=== PATIENT | male | born 1965 | race African-American/Black ===

== ENCOUNTER 2018-10-03 12:43 | Emergency (ER) | payer MEDICAID ==
[~2018-10-03] VITALS: Ht 185.4 cm; Wt 95.3 kg
[2018-10-03 12:51] VITALS: BP 133/95
--- NOTE | 2018-10-03 13:04 | NUR ---
Flashing light and blurry vision to L eye x 2 days. DENIES PAIN, DENIES PHOTOPHOBIA. AOX4, AMBULATORY, RR EVEN AND UNLABORED. SKIN INTACT, NO ACUTE DISTRESS NOTED. PLACED ON MONITOR. READY FOR EVAL. Addendum: 10/03/18 at 1316 by MINIUWONO SEEN BY DR VIEIRA
--- NOTE | 2018-10-03 13:12 | NUR ---
PT TAKEN TO CT VIA [facility]
[2018-10-03 13:13] LABS: BASOPHILS # (AUTO) 0.1 /CMM (0.0-0.2); BASOPHILS % (AUTO) 1.3 % (0.0-2.0); EOSINOPHILS % (AUTO) 2.3 % (0.0-6.0); HEMATOCRIT 49 % (39-51); HEMOGLOBIN 15.5 g/dL (13.5-17.5); LYMPHOCYTES # (AUTO) 2.3 /CMM (0.8-4.8); LYMPHOCYTES % (AUTO) 24.4 % (20.0-44.0); MEAN CORPUSCULAR HGB CONC 32 g/dl (31.0-36.0); MEAN CORPUSCULAR VOLUME 92 fL (80-96); MONOCYTES # (AUTO) 0.7 /CMM (0.1-1.30); NEUTROPHILS # (AUTO) 5.9 /CMM (1.8-8.9); PLATELET COUNT (AUTO) 213 /CMM (150-450); RED BLOOD CELL COUNT(AUTO) 5.27 MIL/uL (4.5-6.0); WHITE BLOOD COUNT (AUTO) 9.3 K/uL (4.3-11.0)
[2018-10-03 13:20] LABS: CALCIUM, SERUM 8.9 mg/dL (8.5-10.1); CREATININE 1.5 mg/dL (0.6-1.3)
[2018-10-03] MEDS ORDERED: AMLO2.5T2 PO (13:54)
[2018-10-03] MEDS ORDERED: ASPIRIN 325 MG TABLET PO ONE (14:00)
[2018-10-03] MEDS ORDERED: ASPIRIN 325 MG TABLET ONE (14:14)
--- NOTE | 2018-10-03 14:29 | NUR ---
IV removed. Catheter intact and site benign. Pressure and 4x4 applied to site. No bleeding noted. Patient does not wish to proceed with medical care recommended by Dr. VIEIRA. Patient given information related to possible complications, up to and including , which could occur as a result of leaving the hospital at this time. Patient verbalizes understanding of risks involved due to leaving against medical advice. Patient has signed AMA form.
[2018-10-04] MEDS ORDERED: FURO-145 PO (09:35)
[2018-10-04] MEDS ORDERED: AMLO5TAB9 PO (09:35)
[2018-10-04] MEDS ORDERED: GLIP5TAB13 PO (09:35)
== END 2018-10-03 14:20 | disposition left against medical advice (07) ==
LOC: ER 12:43
DX: I63.9 Cerebral infarction, unspecified (principal); I10 Essential (primary) hypertension; E11.9 Type 2 diabetes mellitus without complications; R00.0 Tachycardia, unspecified
CPT/HCPCS: 36415; 70450-TC; 71045-TC; 80048-TC; 82962-TC; 84484-TC; 85025-TC

== ENCOUNTER 2018-10-04 02:00 | Inpatient (IN) | payer MEDICAID ==
[~2018-10-04] VITALS: Ht 182.9 cm; Wt 116.6 kg
[~2018-10-04 02:00] MED LIST: AMLO2.5T2 PO
--- NOTE | 2018-10-04 02:06 | NUR ---
PT BIBSELF C/O "FLOATERS IN EYES" X4 DAYS. -TRAUMA, -HEADACHE, -DIZZINESS. PT AOX4. NAD NOTED. RESP EVEN AND UNLABORED. PT ON MONITOR IN BED 9. WILL CONTINUE TO MONITOR.
[2018-10-04] MEDS ORDERED: ASPIRIN 325 MG TABLET PO ONE (02:30)
--- NOTE | 2018-10-04 02:30 | NUR ---
BLOOD DRAWN AND GIVEN TO LAB
--- NOTE | 2018-10-04 02:32 | NUR ---
RADIOLOGY AT BEDSIDE FOR XRAY
[2018-10-04] MEDS ORDERED: ASPIRIN 325 MG TABLET ONE (02:34)
[2018-10-04 02:38] LABS: BASOPHILS # (AUTO) 0.1 /CMM (0.0-0.2); BASOPHILS % (AUTO) 0.8 % (0.0-2.0); EOSINOPHILS % (AUTO) 3.4 % (0.0-6.0); HEMATOCRIT 47 % (39-51); HEMOGLOBIN 15.1 g/dL (13.5-17.5); LYMPHOCYTES # (AUTO) 2.6 /CMM (0.8-4.8); LYMPHOCYTES % (AUTO) 26.2 % (20.0-44.0); MEAN CORPUSCULAR HGB CONC 33 g/dl (31.0-36.0); MEAN CORPUSCULAR VOLUME 91 fL (80-96); MONOCYTES # (AUTO) 0.9 /CMM (0.1-1.30); MONOCYTES % (AUTO) 8.9 % (2.0-12.0); NEUTROPHILS % (AUTO) 60.7 % (43.0-81.0); PLATELET COUNT (AUTO) 202 /CMM (150-450); RED BLOOD CELL COUNT(AUTO) 5.12 MIL/uL (4.5-6.0); WHITE BLOOD COUNT (AUTO) 9.9 K/uL (4.3-11.0)
[2018-10-04 02:45] LABS: CREATININE 1.5 mg/dL (0.6-1.3); POTASSIUM 4.2 mmol/L (3.5-5.1)
--- NOTE | 2018-10-04 03:41 | NUR ---
PT AMBULATED TO BATHROOM AND TOLERATED WELL.
[2018-10-04] MEDS ORDERED: ALBUTEROL FS 2.5 MG/3 ML VIAL.NEB ONE (04:16)
[2018-10-04] MEDS ORDERED: IPRATROPIUM NEB FS 0.5 MG/2.5 ML AMPUL.NEB ONE (04:16)
--- NOTE | 2018-10-04 04:24 | NUR ---
RT AT BEDSIDE FOR BREATHING TREATMENT
[2018-10-04] MEDS ORDERED: FUROSEMIDE 40 MG/4 ML VIAL IV STA (04:30)
[2018-10-04] MEDS ORDERED: ALBUTEROL FS 2.5 MG/3 ML VIAL.NEB NEB ONE (04:30)
[2018-10-04] MEDS ORDERED: IPRATROPIUM NEB FS 0.5 MG/2.5 ML AMPUL.NEB NEB ONE (04:30)
[2018-10-04] MEDS ORDERED: FUROSEMIDE 40 MG/4 ML VIAL ONE (04:34)
--- NOTE | 2018-10-04 04:46 | NUR ---
REPORT GIVEN TO EAN DREW FOR SHIRLEY
[2018-10-04] MEDS ORDERED: SIMVASTATIN 40 MG TABLET PO SCH (05:00)
--- NOTE | 2018-10-04 05:12 | NUR ---
RECORDS ADMINISTRATOR NOTES RECEIVED PATIENT FROM ED VIA GURNEY WITH NO DISTRESS NOTED. PATIENT A/OX4 AND ABLE TO VERBALIZE NEEDS. NO C/O PAIN OR DISCOMFORT. PATIENT STATED HE DOES NOT HAVE BLURRY VISION BUT INSTEAD SEES NUMBERS IN A POARCH IN HIS LEFT EYE THAT TRANSFERS TO HIS RIGHT EYE INTERMITTENTLY. PATIENT DENIES HAVING THIS VISUAL EPISODE AT THIS TIME. NO C/O GILL OR DIZZINESS. NURSING SWALLOW EVAL RENDERED AND TOLERATED WELL. PATIENT ABLE TO SWALLOW SAFELY WITH NO COMPLICATIONS NOTED. ENCOURAGED USE OF CALL LIGHT AND VERBALIZED GOOD UNDERSTANDING. BED IN LOW LOCK SETTING. ROOM FREE OF CLUTTER AND BELONGINGS KEPT NEAR BEDSIDE. WILL CONTINUE TO MONITOR.
[2018-10-04 05:30] VITALS: BP 139/97
[2018-10-04] MEDS ORDERED: BLOOD SUGAR DIAGNOSTIC 1 EACH STRIP IN SCH ×2 (06:00→07:30)
[2018-10-04 06:28] LABS: CALCIUM, SERUM 9.2 mg/dL (8.5-10.1); CREATININE 1.4 mg/dL (0.6-1.3); POTASSIUM 3.7 mmol/L (3.5-5.1)
[2018-10-04 06:30] LABS: BASOPHILS # (AUTO) 0.1 /CMM (0.0-0.2); BASOPHILS % (AUTO) 0.5 % (0.0-2.0); EOSINOPHILS % (AUTO) 2.6 % (0.0-6.0); HEMATOCRIT 45 % (39-51); HEMOGLOBIN 14.7 g/dL (13.5-17.5); LYMPHOCYTES # (AUTO) 2.9 /CMM (0.8-4.8); MEAN CORPUSCULAR HGB CONC 33 g/dl (31.0-36.0); MEAN CORPUSCULAR VOLUME 91 fL (80-96); MONOCYTES # (AUTO) 0.9 /CMM (0.1-1.30); MONOCYTES % (AUTO) 8.6 % (2.0-12.0); NEUTROPHILS # (AUTO) 6.2 /CMM (1.8-8.9); NEUTROPHILS % (AUTO) 60.3 % (43.0-81.0); PLATELET COUNT (AUTO) 216 /CMM (150-450); RED BLOOD CELL COUNT(AUTO) 4.96 MIL/uL (4.5-6.0); WHITE BLOOD COUNT (AUTO) 10.3 K/uL (4.3-11.0)
[2018-10-04 06:34] LABS: ALBUMIN 3.3 g/dL (3.4-5.0); BILIRUBIN,TOTAL 1.1 mg/dL (0.2-1.0); TOTAL PROTEIN, SERUM 7.3 g/dL (6.4-8.2)
--- NOTE | 2018-10-04 07:20 | NUR ---
RN NOTES PATIENT A/OX3, BREATHING EVEN AND UNLABORED, NO SOB NOTED, PATIENT OBSERVED AMBULATING TO THE RESTROOM INDEPENDENTLY WITH STEADY GAIT. NEEDS ATTENDED, CALL LIGHT WITHIN REACH, WILL CONTINUE TO MONITOR.
--- NOTE | 2018-10-04 07:48 | NUR ---
MARKING STITCHER NOTES PATIENT ASLEEP IN BED WITH NO DISTRESS NOTED. CALL LIGHT WITHIN REACH. NO C/O PAIN OR DISCOMFORT. PERIPHERAL LINE INTACT AND PATENT. ALL DUE MEDS GIVEN ORDERED WITH NO ASE NOTED. BED IN LOW LOCK SETTING. ROOM FREE OF CLUTTER AND BELONGINGS KEPT NEAR BEDSIDE. WILL CONTINUE TO MONITOR.
[2018-10-04 08:00] VITALS: BP 138/96
[2018-10-04] MEDS ORDERED: ENOXAPARIN SODIUM 40 MG/0.4 ML DISP.SYRIN SQ SCH (09:00)
[2018-10-04] MEDS ORDERED: ASPIRIN EC 325 MG TABLET.DR PO SCH (09:00)
[2018-10-04] MEDS ORDERED: FURO-145 PO (09:35)
[2018-10-04] MEDS ORDERED: AMLO5TAB9 PO (09:35)
[2018-10-04] MEDS ORDERED: GLIP5TAB13 PO (09:35)
--- NOTE | 2018-10-04 10:00 | NUR ---
RN NOTES STROKE PATIENT TEACHING PROVIDED TO THE PATIENT. GIVEN STROKE PAMPHLET. PATIENT VERBALIZE UNDERSTANDING.
[2018-10-04] MEDS ORDERED: DEXTROSE 50%-WATER 50 ML DISP.SYRIN IV PRN (11:00)
[2018-10-04] MEDS: BLOOD SUGAR DIAGNOSTIC 1 EACH STRIP IN SCH ×2 (11:59→17:57)
[2018-10-04 12:00] VITALS: BP 130/94
[2018-10-04] MEDS: INSULIN REGULAR, HUMAN 100 UNIT/ML 3 ML VIAL SQ PRN ×2 (12:02→17:58)
[2018-10-04 12:24] LABS: APPEARANCE,URINE CLEAR (CLEAR); BILIRUBIN,URINE NEGATIVE (NEGATIVE); BLOOD, URINE TRACE-INTA Ery/uL (NEGATIVE); COLOR,URINE YELLOW (YELLOW); KETONES,URINE NEGATIVE (NEGATIVE); LEUKOCYTE ESTERASE ,URINE NEGATIVE (NEGATIVE); NITRITE, URINE NEGATIVE (NEGATIVE); PH,URINE 6.5 (5.0-8.0); PROTEIN,URINE NEGATIVE (NEGATIVE); UGLUCOSE NEGATIVE (NEGATIVE); UROBILINOGEN,URINE 0.2 EU/dL (0.2)
[2018-10-04 12:27] LABS: BACTERIA,URINE Rare /HPF (None Seen); RBC,URINE 0-2 /HPF (0-2); SQUAMOUS EPITHELIAL CELL,UR 0-2 /HPF (None Seen); WBC,URINE 0-2 /HPF (0-3)
[2018-10-04] MEDS ORDERED: CARVEDILOL 3.125 MG TABLET PO SCH (12:30)
[2018-10-04 12:52] LABS: THYROID STIMULATING HORMONE 2.01 uIU/mL (0.358-3.74)
[2018-10-04] MEDS: FUROSEMIDE 40 MG/4 ML VIAL IV SCH ×2 (13:07→16:36)
[2018-10-04] MEDS: POTASSIUM CHLORIDE 20 MEQ TAB.PRT.SR PO SCH ×3 (13:08→16:34)
[2018-10-04 16:00] VITALS: BP 128/92
[2018-10-04 16:52] LABS: MAGNESIUM 1.6 mg/dL (1.8-2.4); PHOSPHORUS 3.9 mg/dL (2.5-4.9)
[2018-10-04] MEDS ORDERED: MAGNESIUM OXIDE 400 MG TABLET PO ONE (18:30)
--- NOTE | 2018-10-04 18:44 | NUR ---
RN NOTES PATIENT VERBALIZED WANTING TO BE DISCHARGED TO HOME, BUT PER KRISTEN PATIENT IS NOT MEDICALLY CLEARED YET, HOWEVER PATIENT STILL INSISTING ON LEAVING AND WOULD LIKE TO LEAVE AMA. DR. ZIEGLER AND KRISTEN GREGG MADE AWARE. EXPLAINED RISKS AND BENEFITS AND ALTERNATIVES. BUT PATIENT HAS DECIDED TO LEAVE AMA. DR. HARRELL PRESENT AT HIS BEDSIDE. DR. ZIEGLER CALLED FOR RECOMMENDATION OF MEDICATIONS AND DOSAGES AND TO ASK PRIMARY TO WRITE THE RX. INFORMED KRISTEN GREGG. PATIENT IN STABLE CONDITION AT THIS TIME.
--- NOTE | 2018-10-04 19:56 | NUR ---
PT LEFT THE HOSPITAL AMA,. KRISTEN GREGG WINDOWS AND DOORS INSTALLER MADE AWARE. DISCHARGE (EXIT CARE) PAPERS AND A PRESCRIPTION FROM WINDOWS AND DOORS INSTALLER WAS GIVEN TO THE PT. IV LINE WAS REMOVED WITH NO COMPLICATIONS OR BLEEDING. ALL BELONGINGS WERE PICKED UP BY THE PT AND PT WAS ACCOMPANIED TO THE LOBBY. EDUCATION RE HEALTHY DIET AND F/U WITH PRIMARY CARE PHYSICIAN WAS PROVIDED WITH UNDERSTANDING. CHARGE NURSE, CAROL QUINTANA
[2018-10-04 20:20] VITALS: BP 125/84
== END 2018-10-04 20:00 | disposition left against medical advice (07) | DRG 45 ==
LOC: ER 02:03 → TELE 03:06 → MED 09:23 → TELE 12:47
PROVIDERS: ADMIT Registered Nurse; ATTEND Registered Nurse
DX: I63.9 Cerebral infarction, unspecified (principal); I21.A1 Myocardial infarction type 2; N17.0 Acute kidney failure with tubular necrosis; E11.22 Type 2 diabetes mellitus with diabetic chronic kidney disease; E11.65 Type 2 diabetes mellitus with hyperglycemia; E86.0 Dehydration; E66.9 Obesity, unspecified; I25.2 Old myocardial infarction; Z87.891 Personal history of nicotine dependence; Z91.14 Patient's other noncompliance with medication regimen; Z68.34 Body mass index [BMI] 34.0-34.9, adult; I13.0 Hypertensive heart and chronic kidney disease with heart failure and stage 1 through stage 4 chronic kidney disease, or unspecified chronic kidney disease; N18.9 Chronic kidney disease, unspecified; Z79.84 Long term (current) use of oral hypoglycemic drugs; Z79.4 Long term (current) use of insulin; I50.23 Acute on chronic systolic (congestive) heart failure
CPT/HCPCS: 36415; 70450-TC; 71045-TC; 80048-TC; 80053-TC; 80305; 81000-TC; 82962-TC; 83735-TC; 83880; 84100-TC; 84439-TC; 84443-TC; 84484-TC; 85025-TC; 85730-TC; 87081-TC; 92521; 92611-TC; 93307-TC; 93880-TC; G0378; J1650; J1815; J1940

== ENCOUNTER 2018-12-25 03:16 | Inpatient (IN) | payer MEDICAID ==
[2018-12-25] VITALS (9 sets, daily range): BP systolic 109–130; BP diastolic 69–96
[~2018-12-25] VITALS: Ht 182.9 cm; Wt 100.7 kg
[~2018-12-25 03:16] MED LIST changes: -AMLO2.5T2 PO; +AMLO5TAB9 PO; +FURO-145 PO; +GLIP5TAB13 PO
--- NOTE | 2018-12-25 03:40 | NUR ---
TECH AT BEDSIDE FOR EKG
--- NOTE | 2018-12-25 03:43 | NUR ---
PHLEB AT BEDSIDE FOR LAB DRAW
--- NOTE | 2018-12-25 04:17 | NUR ---
RADIOLOGY AT BEDSIDE FOR XRAY
[2018-12-25 04:22] LABS: BASOPHILS # (AUTO) 0.1 /CMM (0.0-0.2); BASOPHILS % (AUTO) 1.5 % (0.0-2.0); EOSINOPHILS % (AUTO) 1.6 % (0.0-6.0); HEMATOCRIT 46 % (39-51); HEMOGLOBIN 14.6 g/dL (13.5-17.5); LYMPHOCYTES # (AUTO) 1.6 /CMM (0.8-4.8); LYMPHOCYTES % (AUTO) 22.7 % (20.0-44.0); MEAN CORPUSCULAR HGB CONC 32 g/dl (31.0-36.0); MEAN CORPUSCULAR VOLUME 87 fL (80-96); MONOCYTES # (AUTO) 0.4 /CMM (0.1-1.30); MONOCYTES % (AUTO) 6.3 % (2.0-12.0); NEUTROPHILS # (AUTO) 4.9 /CMM (1.8-8.9); NEUTROPHILS % (AUTO) 67.9 % (43.0-81.0); PLATELET COUNT (AUTO) 144 /CMM (150-450); RED BLOOD CELL COUNT(AUTO) 5.33 MIL/uL (4.5-6.0); WHITE BLOOD COUNT (AUTO) 7.1 K/uL (4.3-11.0)
[2018-12-25 04:31] LABS: CALCIUM, SERUM 8.6 mg/dL (8.5-10.1); CARBON DIOXIDE 24 mmol/L (21-32); CHLORIDE 101 mmol/L (98-107); CREATININE 1.5 mg/dL (0.6-1.3); GLUCOSE 242 mg/dL (74-106); POTASSIUM 3.9 mmol/L (3.5-5.1); SODIUM SERUM 136 mmol/L (136-145); UREA NITROGEN, BLOOD 31 mg/dL (7-18)
[2018-12-25 04:43] LABS: ALANINE AMINOTRANSFERASE 53 U/L (12-78); ALBUMIN 2.6 g/dL (3.4-5.0); ALKALINE PHOSPHATASE 242 U/L (46-116); ASPARTATE AMINOTRANSFERASE 49 U/L (15-37); B-TYPE NATRIURETIC PEPTIDE 1975 PG/ML (0-125); BILIRUBIN,DIRECT 2.2 mg/dL (0.0-0.2); BILIRUBIN,TOTAL 3.4 mg/dL (0.2-1.0); TOTAL PROTEIN, SERUM 7.8 g/dL (6.4-8.2)
--- NOTE | 2018-12-25 04:44 | NUR ---
LACTIC 2.6. AWARE.
[2018-12-25] MEDS ORDERED: FUROSEMIDE 40 MG/4 ML VIAL ONE (04:54)
--- NOTE | 2018-12-25 04:55 | NUR ---
CALLED [employer] AND HAD HOTHOUSE WORKER DR LIAO
[2018-12-25] MEDS ORDERED: FUROSEMIDE 40 MG/4 ML VIAL IV ONE (05:00)
--- NOTE | 2018-12-25 05:20 | NUR ---
CALLED [facility] FOR TELE BED
--- NOTE | 2018-12-25 05:24 | NUR ---
TELE [id number]
[2018-12-25] MEDS ORDERED: ONDANSETRON HCL/PF 4 MG/2 ML VIAL IVP PRN (05:30)
[2018-12-25] MEDS ORDERED: ZOLPIDEM TARTRATE 5 MG TABLET PO PRN (05:30)
[2018-12-25] MEDS ORDERED: MAGNESIUM HYDROXIDE 30 ML UDC PO PRN (05:30)
[2018-12-25] MEDS ORDERED: ACETAMINOPHEN 325 MG TABLET PO PRN (05:30)
[2018-12-25] MEDS ORDERED: Z GUARD REMEDY 2 OZ OINT TP PRN (05:30)
--- NOTE | 2018-12-25 05:35 | NUR ---
REPORT GIVEN TO EAN DICKSON FOR SHIRLEY
--- NOTE | 2018-12-25 06:56 | NUR ---
RN NOTES RECEIVED PATIENT FROM ED WITH ADMITTING DX OF CHF, SOB AT REST, TALKING WITH FULL SENTENCES WITH SHORTNESS OF BREATH, SPO2 AT ROOM AIR 93%, PRN O2 VIA NC, ALERT AND ORIENTED X4, DENIES PAIN AT THIS TIME, SKIN INTACT, BLE +4 PITTING EDEMA, AMBULATES USING ONE PT CANE, NOT USING O2 AT HOME, STARTED ADMISSION PROCESS
--- NOTE | 2018-12-25 07:33 | NUR ---
HEEL SCOURER OPENING NOTES RECEIVED PT RESTING IN BED, EASILY AROUSED. A/O X4. TOLERATING RA, WITH NO ACUTE RESPIRATORY DISTRESS NOTED. PT DENIES ANY PAIN OR DISCOMFORT AT THIS TIME. BLE EDEMA +4 NOTED. PT STATED HE IS STILL SLEEPY AT THE SAME TIME HUNGRY; INFORMED PT FOR MEAL TIMES. PT ALSO STATED HIS GOAL FOR TODAY IS TO GET OUT OF HERE AND GO HOME. PT ON TELEMONITORING SR WITH HR OF 89. PIV TO RIGHT EJ G20, FLUSHED WITH NS, INTACT AND OPERATIONAL. PT KEPT COMFORTABLE. PT'S BED KEPT IN LOWEST, LOCKED POSITION WITH SR X2. WILL CONTINUE PLAN OF CARE.
[2018-12-25] MEDS ORDERED: ASPI-1152 PO (07:55)
[2018-12-25] MEDS ORDERED: CARV3.122 PO (07:55)
[2018-12-25] MEDS ORDERED: POTA-88 PO (07:55)
[2018-12-25] MEDS: HEPARIN SODIUM, PORCINE 5000 UNITS/1 ML VIAL SQ SCH ×2 (09:16→20:45)
--- NOTE | 2018-12-25 10:45 | NUR ---
GOLF CLUB ASSEMBLER NOTES DR ZIEGLER/SEMICONDUCTOR EQUIPMENT TECHNICIAN SEEN AND EVALUATED PT, WITH ORDERS NOTED. PT AWARE WITH PLAN OF CARE.
[2018-12-25] MEDS: FUROSEMIDE 100 MG/10 ML VIAL IV SCH ×3 (11:46→18:18)
[2018-12-25] MEDS: ASPIRIN EC 81 MG TABLET.DR PO SCH (11:47)
[2018-12-25] MEDS: glipiZIDE 5 MG TABLET PO SCH ×2 (11:47→17:34)
[2018-12-25] MEDS: CARVEDILOL 3.125 MG TABLET PO SCH ×2 (11:47→17:34)
[2018-12-25] MEDS: POTASSIUM CHLORIDE 20 MEQ TAB.PRT.SR PO SCH ×3 (11:47→14:10)
[2018-12-25] MEDS ORDERED: DEXTROSE 50%-WATER 50 ML DISP.SYRIN IV PRN (12:00)
[2018-12-25 12:08] LABS: MAGNESIUM 1.7 mg/dL (1.8-2.4); PHOSPHORUS 4.1 mg/dL (2.5-4.9)
--- NOTE | 2018-12-25 12:15 | NUR ---
INGREDIENT SPECIALIST NOTES HOSPITALIST DIGITAL PHOTO PRINTER /AP CAME AND VISITED PT. NO ORDERS AT THIS MOMENT. DIGITAL PHOTO PRINTER INFORMED PT REGARDING PLAN OF CARE WITH CARDILOGIST DR. ZIEGLER.
[2018-12-25] MEDS: INSULIN REGULAR, HUMAN 100 UNIT/ML 3 ML VIAL SQ PRN ×3 (12:27→22:20)
[2018-12-25] MEDS: BLOOD SUGAR DIAGNOSTIC 1 EACH STRIP IN SCH ×3 (12:28→21:43)
--- NOTE | 2018-12-25 18:31 | NUR ---
HIGH PRESSURE OPERATOR CLOSING NOTES PT RESTING IN BED, AWAKE. A/O X4. AMBULATORY. ON SUPPLEMENTAL OXYGEN AT 2L, WITH NO ACUTE RESPIRATORY DISTRESS NOTED. PT DENIES ANY PAIN OR DISCOMFORT AT THIS TIME. BLE EDEMA +4 NOTED. PT ON TELEMONITORING SR WITH HR OF 94. PIV TO RIGHT EJ G20, FLUSHED WITH NS, INTACT AND OPERATIONAL. ALL NEEDS AND CARE ATTENDED. PT KEPT COMFORTABLE. PT'S BED KEPT IN LOWEST, LOCKED POSITION WITH SR X2. CALL LIGHT WITHIN REACH. WILL ENDORSE TO INCOMING NIGHT NURSE FOR SHIRLEY.
--- NOTE | 2018-12-25 19:26 | NUR ---
TELE/RN OPENING NOTES RECEIVED PATIENT IN SITTING IN CHAIR, ABLE TO AMBULATE TO BATHROOM WITH SUPERVISION, ALERT, ORIENTED X3, ABLE TO VERBALIZE NEEDS, RESPIRATIONS FAST, ENCOURAGE TO DO ELISE BREATHING AND USE OF NASSAL CANULA, NO PAIN VERBALIZED AND PARTICIPATIVE TO CARE,SKIN WARM TO TOUCH, REPORTED HAD ONE BOWEL MOVEMENT DURING THE START OF SHIFT, KEPT CALL LIGHTS WITHIN ERACH, BED LOCKED, INFORMED SAFETY MEASURES. RECEIVED ENDORSEMENT FROM AM RN FOR SHIRLEY. RN AM REPORTED MAGNESIUM WAS LOW AND COMMUNICATED TO AM MD WILL FOLLOW UP RESULT IN AM FOR ANY CHANGES.
[2018-12-25] MEDS: ALBUTEROL FS 2.5 MG/0.5 ML VIAL.NEB NEB PRN (22:54)
[2018-12-25] MEDS: IPRATROPIUM NEB FS 0.5 MG/2.5 ML AMPUL.NEB NEB PRN (22:54)
[2018-12-26] VITALS: BP 112/73
--- NOTE | 2018-12-26 02:37 | NUR ---
TELE/RN NOTES PATIENT REQUESTED FOR EXTERNAL JUGULAR VEIN BE REMOVED, INFORMED THE NECESITY OF IV AND SICUSSED WHY SITE WAS INSERTED DUE TO INABILITY TO FIND VEIN DUE TO EDEMA ON UPPER EXTREMITY, ICU NURSE CAME TO INSERT UNABLE TO DISCUSSED OPTION OF MIDLINE IN AM , PATIENT MADE AWARE, WILL FOLLOW UP IN AM.
[2018-12-26 04:00] VITALS: BP_SYST 112; BP_SYST 116; BP_SYST 119; BP_DIAS 73; BP_DIAS 80; BP_DIAS 83
[2018-12-26 06:20] LABS: BASOPHILS % (AUTO) 0.5 % (0.0-2.0); EOSINOPHILS % (AUTO) 0.8 % (0.0-6.0); HEMATOCRIT 42 % (39-51); HEMOGLOBIN 13.2 g/dL (13.5-17.5); LYMPHOCYTES # (AUTO) 1.9 /CMM (0.8-4.8); LYMPHOCYTES % (AUTO) 26.6 % (20.0-44.0); MEAN CORPUSCULAR HGB CONC 32 g/dl (31.0-36.0); MEAN CORPUSCULAR VOLUME 85 fL (80-96); MONOCYTES # (AUTO) 0.7 /CMM (0.1-1.30); MONOCYTES % (AUTO) 9.3 % (2.0-12.0); NEUTROPHILS # (AUTO) 4.4 /CMM (1.8-8.9); NEUTROPHILS % (AUTO) 62.8 % (43.0-81.0); PLATELET COUNT (AUTO) 147 /CMM (150-450); RED BLOOD CELL COUNT(AUTO) 4.88 MIL/uL (4.5-6.0)
[2018-12-26] MEDS: BLOOD SUGAR DIAGNOSTIC 1 EACH STRIP IN SCH ×4 (06:24→21:44)
[2018-12-26 06:44] LABS: ALBUMIN 2.2 g/dL (3.4-5.0); BILIRUBIN,TOTAL 3.2 mg/dL (0.2-1.0); CALCIUM, SERUM 8.6 mg/dL (8.5-10.1); CREATININE 1.5 mg/dL (0.6-1.3); MAGNESIUM 1.6 mg/dL (1.8-2.4); PHOSPHORUS 4.3 mg/dL (2.5-4.9); POTASSIUM 4.1 mmol/L (3.5-5.1); TOTAL PROTEIN, SERUM 6.6 g/dL (6.4-8.2)
--- NOTE | 2018-12-26 06:47 | NUR ---
TELE/RN CLOSING NOTES PATIENT IN BED ABLE TO SLEEP INTERMITENRLY. ALERT, ORIENTED, RESPIRATIONS EVEN AND UNLABORED, ON OXYGEN AT 2L VIA NC. SKIN WARM TO TOUCH, CRANBERRY JUICE WAS GIVEN AFTER BLOOD SUGAR CHECK AT 69, ABLE TO TOLERAT FLUIDS, MONITORED FOR ANY CHANGES, BED LOCKED, CALL LIGHTS WITHIN REACH, COMPLIAN TO MEDICATION. WILL ENDORSE TO AM RN FOR SHIRLEY. REFUSE TO HAVE EXTERNAL JUGULAR VEIN AND MAY NEED MID LINE BE PLACED, WILL ENDORSE TO AM RN FOR SHIRLEY.
--- NOTE | 2018-12-26 07:40 | NUR ---
rn initial notes received pt awake and able to verbalize needs, denies any pain at this time. noted with edema of bue and ble. call light within reach, bed alarm on.sinus rhythm on the monitor. no sob. will monitor accordingly.
[2018-12-26 08:00] VITALS: BP 114/76
[2018-12-26] MEDS: CARVEDILOL 3.125 MG TABLET PO SCH ×2 (08:37→16:39)
[2018-12-26] MEDS: ASPIRIN EC 81 MG TABLET.DR PO SCH (08:37)
[2018-12-26] MEDS: glipiZIDE 5 MG TABLET PO SCH ×2 (08:37→16:39)
[2018-12-26] MEDS: HEPARIN SODIUM, PORCINE 5000 UNITS/1 ML VIAL SQ SCH ×2 (09:19→21:43)
[2018-12-26] MEDS: METOLAZONE 2.5 MG TABLET PO SCH (09:34)
[2018-12-26] MEDS: FUROSEMIDE 100 MG/10 ML VIAL IV SCH ×3 (09:34→16:39)
[2018-12-26] MEDS: POTASSIUM CHLORIDE 20 MEQ TAB.PRT.SR PO SCH ×3 (09:35→12:03)
[2018-12-26] MEDS ORDERED: Magnesium 1GM/D5W 100ML PREMIX 100 ML IV SCH (11:02)
[2018-12-26] MEDS: INSULIN REGULAR, HUMAN 100 UNIT/ML 3 ML VIAL SQ PRN (12:16)
--- NOTE | 2018-12-26 14:12 | NUR ---
DANETTE received a call from pt's mom Paulette regarding a few concerns she had. Paulette informed SW that the pt. has been going from hospital to hospital and currently doesn't have a place to stay. Pt's mom has a contract until March for housing international students and cannot take the pt. to live with her. She is willing to pay for an independent living or facility. DANETTE gave her contact information for [facility] ; [facility] and [facility] . Pt. currently doesn't have insurance and has been referred to [facility] Insurance liaison Misty Ochoa at extension [phone]. No other social service needs are requested at this time. DANETTE is available, if needed.
[2018-12-26 15:45] VITALS: BP 134/98
--- NOTE | 2018-12-26 18:39 | NUR ---
RN CLOSING NOTES NO SIGNIFICANT CHANGES NOTED DURING THIS SHIFT. AMBULATED AND TOLERATED WELL, ACTIVE ROM DONE. ALL MEDS GIVEN. PT REMAINS ON LASIX AND WITH ADEQUATE URINE OUTPUT. MAGNESIUM IV GIVEN, POTASSIUM PO GIVEN ORDERED. PTS FAMILY HAS SPOKE WITH CASE MANAGEMENT AND TANK SYSTEMS MAINTAINER RE THEIR CONCERNS. WILL ENDORSE TO NEXT SHIFT FOR CONTINUITY OF CARE IN STABLE CONDITION.
--- NOTE | 2018-12-26 19:20 | NUR ---
MSRN RECEIVED ASLEEP, EASILY AROUSABLE, SOB ON MINIMAL EXERTION, 02 2L VIA NC MAINTAINED. PLAN OF CARE AND MEDICATION REGIMEN DISCUSSED WITH PATIENT, APPEARS TO UNDERSTAND. STRICT I/O, FLUIDS RESTRICTED. REMINDED TO USE URINAL AT ALL TIMES, URINALS WITHIN REACH. INSTRUCTED TO CALL STAFF FOR ANY ASSISTANCE OR DISCOMFORTS, INSTRUCTED TO SPACE ACTIVITIES. SAFETY PRECAUTIONS EMPHASIZED. TO CONTINUE.
[2018-12-26 20:00] VITALS: BP 132/73
--- NOTE | 2018-12-26 21:02 | NUR ---
LISETTEN SON AT BEDSIDE.
--- NOTE | 2018-12-26 22:06 | NUR ---
MSRN BS WAS 169. INSULIN COVERAGE DEFERRED FOR NOW. PATIENT STATED JUST HAD SANDWICH BROUGHT IN BY SON.. OTHER DUE MEDS ADMINISTERED. STRICT I/O
[2018-12-26] MEDS: ALBUTEROL FS 2.5 MG/0.5 ML VIAL.NEB NEB PRN (22:15)
[2018-12-26] MEDS: IPRATROPIUM NEB FS 0.5 MG/2.5 ML AMPUL.NEB NEB PRN (22:15)
--- NOTE | 2018-12-27 | NUR ---
MSRN ASLEEP, ENDORSED TO RN FOR CONTINUITY OF CARE.
--- NOTE | 2018-12-27 00:15 | NUR ---
RECEIVED REPORT PT STABLE, SLEEPING COMFORTABLY NO APPARENT DISTRESS OR DISCOMFORT AT THIS TIME.WILL CONTINUE TO MONITOR FREQUENTLY
--- NOTE | 2018-12-27 06:18 | NUR ---
RN CLOSING NOTES PT REMAINS IN BED, AWAKE ALERT ORIENTEDX4, BREATHING EVEN AND MINIMALLY LABORED ON 2L O2 NC. NO COMPLAINT OF PAIN OR DISCOMFORT AT THIS TIME. L UPPER ARM MIDLINE IN PLACE. BED IN LOWEST LOCKED POSITION, PT MADE COMFORTABLE NEEDS ATTENDED TO. CALL LIGHT WITHIN REACH AT ALL TIMES. WILL ENDORSE TO DAY NURSE FOR SHIRLEY.
[2018-12-27] MEDS: BLOOD SUGAR DIAGNOSTIC 1 EACH STRIP IN SCH ×4 (06:31→22:23)
[2018-12-27] MEDS: INSULIN REGULAR, HUMAN 100 UNIT/ML 3 ML VIAL SQ PRN ×4 (06:32→22:51)
--- NOTE | 2018-12-27 07:30 | NUR ---
RN MS NOTES PT IN BED, AWAKE, ALERT AND ORIENTED, NO COMPLAINT OF PAIN, NO COMPLAINT OF SOB, CALL LIGHT WITHIN REACH, MIDLINE AT LEFT A/C INTACT AND PATENT, KEPT COMFORTABLE, NEEDS ATTENDED.
[2018-12-27 07:36] LABS: BASOPHILS % (AUTO) 0.6 % (0.0-2.0); EOSINOPHILS % (AUTO) 2.4 % (0.0-6.0); HEMATOCRIT 40 % (39-51); HEMOGLOBIN 12.6 g/dL (13.5-17.5); LYMPHOCYTES # (AUTO) 1.7 /CMM (0.8-4.8); LYMPHOCYTES % (AUTO) 27.8 % (20.0-44.0); MEAN CORPUSCULAR HGB CONC 31 g/dl (31.0-36.0); MEAN CORPUSCULAR VOLUME 86 fL (80-96); MONOCYTES # (AUTO) 0.5 /CMM (0.1-1.30); NEUTROPHILS # (AUTO) 3.8 /CMM (1.8-8.9); NEUTROPHILS % (AUTO) 61.2 % (43.0-81.0); PLATELET COUNT (AUTO) 130 /CMM (150-450); RED BLOOD CELL COUNT(AUTO) 4.68 MIL/uL (4.5-6.0); WHITE BLOOD COUNT (AUTO) 6.3 K/uL (4.3-11.0)
[2018-12-27 07:49] LABS: ALBUMIN 2.1 g/dL (3.4-5.0); BILIRUBIN,TOTAL 3.1 mg/dL (0.2-1.0); CALCIUM, SERUM 8.3 mg/dL (8.5-10.1); CREATININE 1.4 mg/dL (0.6-1.3); MAGNESIUM 1.5 mg/dL (1.8-2.4); PHOSPHORUS 4.2 mg/dL (2.5-4.9); POTASSIUM 3.5 mmol/L (3.5-5.1); TOTAL PROTEIN, SERUM 6.2 g/dL (6.4-8.2)
[2018-12-27 08:00] VITALS: BP 116/71
[2018-12-27] MEDS: METOLAZONE 2.5 MG TABLET PO SCH (08:43)
[2018-12-27] MEDS: glipiZIDE 5 MG TABLET PO SCH ×2 (08:43→16:51)
[2018-12-27] MEDS: CARVEDILOL 3.125 MG TABLET PO SCH ×2 (08:44→16:51)
[2018-12-27] MEDS: ASPIRIN EC 81 MG TABLET.DR PO SCH (08:44)
[2018-12-27] MEDS: HEPARIN SODIUM, PORCINE 5000 UNITS/1 ML VIAL SQ SCH ×2 (08:58→22:50)
[2018-12-27] MEDS: Magnesium 1GM/D5W 100ML PREMIX 100 ML IV SCH ×2 (09:15→10:38)
[2018-12-27] MEDS: POTASSIUM CHLORIDE 20 MEQ TAB.PRT.SR PO SCH ×4 (09:15→12:53)
[2018-12-27] MEDS: FUROSEMIDE 100 MG/10 ML VIAL IV SCH ×3 (09:16→16:51)
[2018-12-27 12:00] VITALS: BP 120/79
--- NOTE | 2018-12-27 13:00 | NUR ---
RN MS NOTES PT IN BED, RESTING, NO COMPLAINT OF PAIN, NOT IN DISTRES, SEEN BY DR. ZIEGLER AND KRISTEN STRAIGHT CUTTER, PLAN OF CARE DISCUSSED WITH PT, VERBALIZED UNDERSTANDING, PT ALSO SEEN BY PHYSICAL THERAPIST, TOLERATED TREATMENT WELL, CALL LIGHT WITHIN REACH, DUE MEDS GIVEN ORDERED, KEPT WARM AND COMFORTABLE IN BED.
[2018-12-27 15:30] VITALS: BP 110/78
[2018-12-27] MEDS ORDERED: GUAIFENESIN 300 MG/15 ML UDC PO PRN (17:30)
--- NOTE | 2018-12-27 18:15 | NUR ---
RN MS NOTES PT IN BED, AWAKE, ALERT AND ORIENTED, DENIES PAIN, NOT IN DISTRESS, WITH COMPLAINT OF MUCUS AND IRRITATION IN HIS THROAT, KRISTEN WELT SLASHER INFORMED, ROBITUSSION ORDERED, PM MEDS ADMINISTERED, TOLERATING CURRENT DIET, ALL NEEDS ATTENDED.
--- NOTE | 2018-12-27 19:50 | NUR ---
MSRN FULLY AWAKE, DAUGHTER AT BEDSIDE. PROVIDED PRIVACY. NO NEEDS FOR NOW.
[2018-12-27 20:00] VITALS: BP 116/85
--- NOTE | 2018-12-27 22:30 | NUR ---
MSRN BS WAS 145, 2 UNITS REGULAR INSULIN SQ ADMINISTERED PER SLIDING SCALE. OTHER DUE MEDS GIVEN. SNACKS PROVIDED
--- NOTE | 2018-12-27 23:15 | NUR ---
MSRN ENDORSED TO RN FOR CONTNUITY OF CARE.
--- NOTE | 2018-12-27 23:26 | NUR ---
MS RN NOTES Assume care of this patient. Asleep comfortably on bed. Call light within easy reach. Will continue to monitor accordingly.
[2018-12-28] MEDS: BLOOD SUGAR DIAGNOSTIC 1 EACH STRIP IN SCH ×4 (06:30→21:43)
--- NOTE | 2018-12-28 07:21 | NUR ---
MS RN CLOSING NOTES Patient asleep, easily awaken. Appears comfortable, no s/sx of discomfort noted. Kept bed low and locked. Call light within easy reach. Endorsed to the next shift.
--- NOTE | 2018-12-28 07:45 | NUR ---
RN MS NOTES PT IN BED, AWAKE, ALERT AND ORIENTED, STATED THAT HE FEELS BETTER, NO COMPLAINT OF PAIN, NOT IN DISTRESS, CALL LIGHT WITHIN REACH, SEEN BY DR. ZIEGLER, PLAN OF CARE DISCUSSED WITH PT, VERBALIZED UNDERSTANDING.
[2018-12-28 08:00] VITALS: BP 119/88
[2018-12-28] MEDS: glipiZIDE 5 MG TABLET PO SCH ×2 (09:00→17:30)
[2018-12-28] MEDS: ASPIRIN EC 81 MG TABLET.DR PO SCH (09:00)
[2018-12-28] MEDS: METOLAZONE 2.5 MG TABLET PO SCH (09:00)
--- NOTE | 2018-12-28 09:00 | NUR ---
EAN ANDREWS NOTES INSULIN NOT ADMINISTERED, PT WITH POOR PO INTAKE. Addendum: 12/28/18 at 1610 by INEZ SCHOFIELD RN PLS DISREGARD ABOVE NOTE, WRONG PATIENT.
[2018-12-28] MEDS: CARVEDILOL 3.125 MG TABLET PO SCH ×2 (09:01→17:31)
[2018-12-28] MEDS: HEPARIN SODIUM, PORCINE 5000 UNITS/1 ML VIAL SQ SCH ×2 (09:18→20:54)
--- NOTE | 2018-12-28 13:00 | NUR ---
RN MS NOTES PT IN BED, AWAKE, ALERT AND ORIENTED, NO SOB, CALL LIGHT WITHIN REACH, NEEDS ATTENDED, SEEN BY PHYSICAL THERAPIST, TOLERATING CURRENT DIET WELL, CALL LIGHT WITHIN REACH AT ALL TIMES.
[2018-12-28] MEDS: INSULIN REGULAR, HUMAN 100 UNIT/ML 3 ML VIAL SQ PRN ×3 (13:22→21:37)
[2018-12-28 14:36] LABS: BASOPHILS % (AUTO) 0.7 % (0.0-2.0); EOSINOPHILS % (AUTO) 2.2 % (0.0-6.0); HEMATOCRIT 41 % (39-51); LYMPHOCYTES # (AUTO) 1.9 /CMM (0.8-4.8); LYMPHOCYTES % (AUTO) 30.5 % (20.0-44.0); MEAN CORPUSCULAR HGB CONC 32 g/dl (31.0-36.0); MEAN CORPUSCULAR VOLUME 86 fL (80-96); MONOCYTES # (AUTO) 0.5 /CMM (0.1-1.30); MONOCYTES % (AUTO) 8.4 % (2.0-12.0); NEUTROPHILS # (AUTO) 3.7 /CMM (1.8-8.9); NEUTROPHILS % (AUTO) 58.2 % (43.0-81.0); PLATELET COUNT (AUTO) 126 /CMM (150-450); RED BLOOD CELL COUNT(AUTO) 4.72 MIL/uL (4.5-6.0); WHITE BLOOD COUNT (AUTO) 6.3 K/uL (4.3-11.0)
[2018-12-28 15:03] LABS: ALBUMIN 2.2 g/dL (3.4-5.0); BILIRUBIN,TOTAL 3.6 mg/dL (0.2-1.0); CALCIUM, SERUM 8.5 mg/dL (8.5-10.1); CREATININE 1.6 mg/dL (0.6-1.3); MAGNESIUM 1.7 mg/dL (1.8-2.4); PHOSPHORUS 4.7 mg/dL (2.5-4.9); POTASSIUM 3.9 mmol/L (3.5-5.1); TOTAL PROTEIN, SERUM 6.7 g/dL (6.4-8.2)
[2018-12-28 16:00] VITALS: BP 121/75
[2018-12-28] MEDS ORDERED: MAGNESIUM OXIDE 400 MG TABLET PO ONE (16:30)
--- NOTE | 2018-12-28 18:25 | NUR ---
RN MS NOTES PT IN BED, AWAKE, ALERT AND ORIENTED, DENIES PAIN, NOT IN DISTRESS, WATCHING TV, PM MEDS GIVEN, TOLERATING CURRENT DIET WELL, ALL NEEDS ATTENDED.
--- NOTE | 2018-12-28 19:00 | NUR ---
MS RN OPENING NOTES Received patient awake on bed, no complaints of discomfort/pain at this time. On O2 at 2LPM via NC, saturating well. Kept bed low and locked, call light within easy reach. Will continue to monitor accordingly.
[2018-12-28 20:01] VITALS: BP 121/86
--- NOTE | 2018-12-29 06:36 | NUR ---
MS RN CLOSING NOTES Patient asleep, easily awaken. On O2 inhalation via NC @ 2LPM, no SOB/respiratory distress noted. All due meds given as ordered. All nursing needs attended, kept clean, dry and comfortable. No new complaints made, BLE still edematous +3. Kept bed low and locked, call light within easy reach. Endorsed to the next shift.
[2018-12-29] MEDS: BLOOD SUGAR DIAGNOSTIC 1 EACH STRIP IN SCH ×4 (06:53→21:44)
--- NOTE | 2018-12-29 07:30 | NUR ---
MS RN OPENING NOTES RECEIVED PT AWAKE IN BED, A/O X4. ON SUPPLEMENTARY OXYGEN AT 2LPM VIA NC, WITH NO ACUTE RESPIRATORY DISTRESS NOTED. PT DENIES PAIN OR ANY DISCOMFORT. PT ALSO DENIES [id number] AND QUESTIONS DURING ROUNDS. PT STATED HE'S STILL SLEEPY. PIV COREEN MIDLINE, FLUSHED WITH NS, INTACT AND OPERATIONAL. PT KEPT COMFORTABLE. HOB ELEVATED. PT'S BED KEPT IN LOWEST, LOCKED POSITION WITH SR X2. CALL LIGHT AND FLUID WITHIN REACH. WILL CONTINUE PLAN OF CARE.
[2018-12-29 08:00] VITALS: BP 109/84
[2018-12-29] MEDS: Magnesium 1GM/D5W 100ML PREMIX 100 ML IV SCH ×2 (08:46→09:49)
[2018-12-29] MEDS: FUROSEMIDE 100 MG/10 ML VIAL IV SCH ×3 (08:48→15:44)
[2018-12-29] MEDS: POTASSIUM CHLORIDE 20 MEQ TAB.PRT.SR PO SCH ×5 (08:48→13:00)
[2018-12-29] MEDS: METOLAZONE 2.5 MG TABLET PO SCH (08:49)
[2018-12-29] MEDS: ASPIRIN EC 81 MG TABLET.DR PO SCH (08:49)
[2018-12-29] MEDS: glipiZIDE 5 MG TABLET PO SCH ×2 (08:49→16:58)
[2018-12-29] MEDS: HEPARIN SODIUM, PORCINE 5000 UNITS/1 ML VIAL SQ SCH ×2 (08:51→21:46)
[2018-12-29] MEDS: CARVEDILOL 3.125 MG TABLET PO SCH ×2 (09:00→16:58)
--- NOTE | 2018-12-29 14:54 | NUR ---
MS RN NOTES UNABLE TO GIVE FIFTH DOSE OF KDUR 20MEQ TAB. PT STATED HE WANTS TO REST EARLIER. REPLACED LAST DOSE WITH NEW ORDER KDUR 20MEQ PO ONCE. PER PT REQUEST.
[2018-12-29] MEDS ORDERED: POTASSIUM CHLORIDE 20 MEQ TAB.PRT.SR PO ONE (15:00)
[2018-12-29 16:00] VITALS: BP 122/82
[2018-12-29] MEDS: INSULIN REGULAR, HUMAN 100 UNIT/ML 3 ML VIAL SQ PRN ×2 (17:08→21:48)
[2018-12-29 17:40] LABS: BASOPHILS % (AUTO) 0.7 % (0.0-2.0); EOSINOPHILS % (AUTO) 2.6 % (0.0-6.0); HEMATOCRIT 42 % (39-51); HEMOGLOBIN 13.4 g/dL (13.5-17.5); LYMPHOCYTES % (AUTO) 30.6 % (20.0-44.0); MEAN CORPUSCULAR HGB CONC 32 g/dl (31.0-36.0); MEAN CORPUSCULAR VOLUME 87 fL (80-96); MONOCYTES # (AUTO) 0.5 /CMM (0.1-1.30); MONOCYTES % (AUTO) 7.6 % (2.0-12.0); NEUTROPHILS # (AUTO) 3.9 /CMM (1.8-8.9); NEUTROPHILS % (AUTO) 58.5 % (43.0-81.0); PLATELET COUNT (AUTO) 125 /CMM (150-450); RED BLOOD CELL COUNT(AUTO) 4.87 MIL/uL (4.5-6.0); WHITE BLOOD COUNT (AUTO) 6.6 K/uL (4.3-11.0)
[2018-12-29 18:21] LABS: ALBUMIN 2.3 g/dL (3.4-5.0); BILIRUBIN,TOTAL 4.2 mg/dL (0.2-1.0); CALCIUM, SERUM 8.8 mg/dL (8.5-10.1); CREATININE 1.4 mg/dL (0.6-1.3); PHOSPHORUS 4.3 mg/dL (2.5-4.9); POTASSIUM 4.2 mmol/L (3.5-5.1)
--- NOTE | 2018-12-29 18:35 | NUR ---
MS RN CLOSING NOTES PT AWAKE IN BED, A/O X4. ON SUPPLEMENTARY OXYGEN AT 2LPM VIA NC , WITH NO ACUTE RESPIRATORY DISTRESS NOTED. PT DENIES PAIN OR ANY DISCOMFORT. PIV COREEN MIDLINE G18, FLUSHED WITH NS, INTACT AND OPERATIONAL. ALL NEEDS AND CARE ATTENDED. UA TO COLLECT; PT AWARE AND CONTINENT. HOSPITALIST/STRAIGHTENER/LW ORDERED HIDA SCAN, NUCLEAR MED CALLED AND MADE AWARE, AWAITING FOR CALL BACK REGARDING DATE AND TIME FOR PROCEDURE. WRITTEN CONSENT FOR HIDA SCAN OBTAINED FROM PT, SIGNED BY PT. PT KEPT COMFORTABLE. HOB ELEVATED. PT'S BED KEPT IN LOWEST, LOCKED POSITION WITH SR X2. CALL LIGHT AND FLUID WITHIN REACH. WILL ENDORSE TO SALES MGR NURSE FOR SHIRLEY.
[2018-12-29 18:52] LABS: BILIRUBIN,TOTAL 4.3 mg/dL (0.2-1.0)
--- NOTE | 2018-12-29 19:19 | NUR ---
MS RN RECEIVE PT IN BED AWAKE A/O X 3, NO S/S OF DISTRESS, SAFETY MEASURES IN PLACE. WILL CONTINUE TO MONITOR
[2018-12-29 20:00] VITALS: BP 115/66
[2018-12-30] MEDS: BLOOD SUGAR DIAGNOSTIC 1 EACH STRIP IN SCH ×4 (06:03→21:34)
[2018-12-30] MEDS: INSULIN REGULAR, HUMAN 100 UNIT/ML 3 ML VIAL SQ PRN ×3 (06:05→21:36)
--- NOTE | 2018-12-30 06:17 | NUR ---
MS RN ASLEEP AND EASILY AWAKEN, RESPIRATIONS EVEN AND UNLABORED. SLEPT WELL THROUGHOUT THE NIGHT. NO SIGNIFICANT CHANGES THROUGHOUT THE SHIFT. NO SHORTNESS OF BREATH, KEPT CLEAN AND DRY AND COMFORTABLE. NEEDS ATTENDED AND ANTICIPATED, AM CARE RENDERED, NO C/O OF PAIN. SAFETY MEASURES AT ALL TIMES.PT WANTS BLOOD DRAW LATER AM PER PT "I WANTED TO SLEEP" DESPITE EXPLAINING RISKS AND BENEFITS. WILL RE TRY AND ENDORSE TO DAY SHIFT RN
[2018-12-30 06:30] LABS: APPEARANCE,URINE CLEAR (CLEAR); BILIRUBIN,URINE NEGATIVE (NEGATIVE); BLOOD, URINE NEGATIVE Ery/uL (NEGATIVE); COLOR,URINE YELLOW (YELLOW); KETONES,URINE NEGATIVE (NEGATIVE); LEUKOCYTE ESTERASE ,URINE NEGATIVE (NEGATIVE); NITRITE, URINE NEGATIVE (NEGATIVE); PROTEIN,URINE NEGATIVE (NEGATIVE); UGLUCOSE NEGATIVE (NEGATIVE)
[2018-12-30 06:43] LABS: CREATININE, URINE 15.5 MG/DL (30.0-125.0); URINE TOTAL PROTEIN 5.8 mg/dL (0-11.9)
--- NOTE | 2018-12-30 07:20 | NUR ---
MS RN OPENING NOTES RECEIVED PT LAYING IN BED, RESTING COMFORTABLY. PT IS EASILY AROUSABLE. RESPIRATIONS ARE EVEN AND UNLABORED, NOT IN ANY ACUTE DISTRESS NOTED. PT C/O BACK PAIN 05/14. PER PT HE DOES NOT TAKE ANY PAIN MEDICATION. WILL MEDICATE ACCORDINGLY AND NOTE EFFECTIVENESS. MIDLINE TO COREEN INTACT, NO INFILTRATION NOTED. DRESSING KEPT CLEAN AND DRY. SAFETY MEASURES ARE IN PLACE. INSTRUCTED PT TO USE CALL LIGHT WHEN ASSISTANCE IS NEEDED, CALL LIGHT IS LEFT WITHIN REACH. WILL MONITOR THROUGHOUT SHIFT FOR CONTINUITY OF CARE.
--- NOTE | 2018-12-30 07:25 | NUR ---
MS RN NOTES-- PT WAS SEEN AND EXAMINED BY DR. ZIEGLER.
[2018-12-30 07:43] LABS: BACTERIA,URINE Few /HPF (None Seen); RBC,URINE 0-2 /HPF (0-2); SQUAMOUS EPITHELIAL CELL,UR Rare /HPF (None Seen); WBC,URINE 0-2 /HPF (0-3)
[2018-12-30 08:00] VITALS: BP 102/63
[2018-12-30] MEDS: FUROSEMIDE 100 MG/10 ML VIAL IV SCH ×3 (08:11→14:59)
[2018-12-30] MEDS: glipiZIDE 5 MG TABLET PO SCH ×2 (08:12→17:00)
[2018-12-30] MEDS: METOLAZONE 2.5 MG TABLET PO SCH (08:12)
[2018-12-30] MEDS: ASPIRIN EC 81 MG TABLET.DR PO SCH (08:12)
[2018-12-30] MEDS: CARVEDILOL 3.125 MG TABLET PO SCH ×2 (08:14→17:00)
[2018-12-30] MEDS: HEPARIN SODIUM, PORCINE 5000 UNITS/1 ML VIAL SQ SCH ×2 (08:20→20:31)
[2018-12-30 11:06] LABS: BASOPHILS % (AUTO) 0.6 % (0.0-2.0); EOSINOPHILS % (AUTO) 2.5 % (0.0-6.0); HEMATOCRIT 41 % (39-51); LYMPHOCYTES # (AUTO) 1.4 /CMM (0.8-4.8); LYMPHOCYTES % (AUTO) 23.5 % (20.0-44.0); MEAN CORPUSCULAR HGB CONC 32 g/dl (31.0-36.0); MEAN CORPUSCULAR VOLUME 87 fL (80-96); MONOCYTES # (AUTO) 0.5 /CMM (0.1-1.30); MONOCYTES % (AUTO) 9.4 % (2.0-12.0); NEUTROPHILS # (AUTO) 3.7 /CMM (1.8-8.9); PLATELET COUNT (AUTO) 133 /CMM (150-450); WHITE BLOOD COUNT (AUTO) 5.8 K/uL (4.3-11.0)
[2018-12-30 11:30] LABS: ALBUMIN 2.3 g/dL (3.4-5.0); BILIRUBIN,DIRECT 2.1 mg/dL (0.0-0.2); BILIRUBIN,TOTAL 3.8 mg/dL (0.2-1.0); CALCIUM, SERUM 8.6 mg/dL (8.5-10.1); CREATININE 1.6 mg/dL (0.6-1.3); MAGNESIUM 1.7 mg/dL (1.8-2.4); PHOSPHORUS 4.3 mg/dL (2.5-4.9); POTASSIUM 3.2 mmol/L (3.5-5.1)
[2018-12-30 11:32] LABS: BILIRUBIN,DIRECT 2.1 mg/dL (0.0-0.2); BILIRUBIN,TOTAL 3.8 mg/dL (0.2-1.0)
--- NOTE | 2018-12-30 11:54 | NUR ---
MS RN NOTES-- BLOOD SUGAR 275. 6 UNITS HUMILIN INSULIN COVERAGE. NO S/SX OF HYPERGLYCEMIA. WLL CONTINUE TO MONITOR.
[2018-12-30] MEDS: POTASSIUM CHLORIDE 20 MEQ TAB.PRT.SR PO SCH ×2 (13:15→14:04)
[2018-12-30] MEDS: Magnesium 1GM/D5W 100ML PREMIX 100 ML IV SCH ×2 (13:15→14:58)
--- NOTE | 2018-12-30 14:04 | NUR ---
MS RN NOTES-- PT ABLE TO MAKE NEEDS KNOWN. NEEDS MET AND RENDERED. PT DOES NOT APPEAR TO BE IN ANY APPARENT DISTRESS. WILL CONTINUE TO MONITOR.
[2018-12-30 16:00] VITALS: BP 118/88
--- NOTE | 2018-12-30 16:25 | NUR ---
MS MCKOY NOTES-- PT SIGNED CONSENT FOR HIDA SCAN.
--- NOTE | 2018-12-30 17:06 | NUR ---
MS RN NOTES-- PT P/U BY RADIOLOGY FOR HIDA SCAN. PT LEFT IN STABLE CONDITION.
--- NOTE | 2018-12-30 18:13 | NUR ---
MS RN NOTES-- PT CURRENTLY IN NUCLEAR MED. 1700 MEDS NOT GIVEN.
--- NOTE | 2018-12-30 18:42 | NUR ---
MS RN NOTES-- BLOOD SUGAR WAS NOT CHECKED. PT STILL IN NUCLEAR MED.
--- NOTE | 2018-12-30 18:50 | NUR ---
MS RN CLOSING NOTES NEEDS MET AND RENDERED. PT IS A/O X4, AFEBRILE. RESPIRATIONS ARE EVEN AND UNLABORED, NOT IN ANY ACUTE DISTRESS NOTED. PT DENIES ANY PAIN AT THIS TIME, NO C/O SOB, N/V. MIDLINE TO COREEN INTACT, NO INFILTRATION NOTED. DRESSING KEPT CLEAN AND DRY. SAFETY MEASURES ARE IN PLACE. REMINDED PT TO USE CALL LIGHT WHEN ASSISTNACE IS NEEDED. DAUGHTER AT BEDSIDE. WILL ENDORSE TO NEXT SHIFT FOR CONTINUITY OF CARE.
--- NOTE | 2018-12-30 18:50 | NUR ---
MS MCKOY NOTES-- PT CAME BACK FROM [place] IN STABLE CONDITION VIA WC.
--- NOTE | 2018-12-30 19:00 | NUR ---
MS RN OPENING NOTES Patient received sitting up in bed, family at bedside, alert, oriented x 4. Breathing even and unlabored. Not in any distress, on O2 at 2LP via nasal cannula. Patient able to make needs known. No complaints at this time. COREEN midline intact, no signs of infiltration. Safety measures in place; call light within reach. Bed in lowest, locked position. Encouraged to call for assistance. Will continue to monitor accordingly
[2018-12-30 20:00] VITALS: BP 129/81
--- NOTE | 2018-12-30 21:36 | NUR ---
RN NOTES Patient went down for HIDA scan
--- NOTE | 2018-12-30 21:36 | NUR ---
RN NOTES BSL- 217mg/dL. Insulin 4 units given per sliding scale
--- NOTE | 2018-12-30 22:08 | NUR ---
RN NOTES Patient back in room from HIDA scan
[2018-12-30 22:55] VITALS: BP 129/81
[2018-12-31] MEDS: BLOOD SUGAR DIAGNOSTIC 1 EACH STRIP IN SCH (06:30)
[2018-12-31] MEDS: INSULIN REGULAR, HUMAN 100 UNIT/ML 3 ML VIAL SQ PRN ×3 (06:32→16:46)
--- NOTE | 2018-12-31 06:55 | NUR ---
RN NOTES Patient's blood sugar 296mg/dL. Patient stated that his daughter brought him food from last night but said he just had crackers and sunflower seeds. Patient educated regarding diet
--- NOTE | 2018-12-31 07:00 | NUR ---
MS RN CLOSING NOTES Patient resting in bed, alert, oriented x 4. Breathing even and unlabored. Not in any distress. BSL checked- 296mg/dL, 6 units of insulin given per sliding scale. No complaints at this time. No acute changes overnight. Safety measures in place; call light within reach. Bed in low, locked position. Will endorse SHIRLEY to oncoming RN.
[2018-12-31 07:33] LABS: BASOPHILS % (AUTO) 0.5 % (0.0-2.0); EOSINOPHILS % (AUTO) 2.6 % (0.0-6.0); HEMATOCRIT 39 % (39-51); HEMOGLOBIN 12.4 g/dL (13.5-17.5); LYMPHOCYTES # (AUTO) 1.6 /CMM (0.8-4.8); LYMPHOCYTES % (AUTO) 24.6 % (20.0-44.0); MEAN CORPUSCULAR HGB CONC 32 g/dl (31.0-36.0); MEAN CORPUSCULAR VOLUME 88 fL (80-96); MONOCYTES # (AUTO) 0.7 /CMM (0.1-1.30); MONOCYTES % (AUTO) 10.3 % (2.0-12.0); PLATELET COUNT (AUTO) 137 /CMM (150-450); RED BLOOD CELL COUNT(AUTO) 4.47 MIL/uL (4.5-6.0); WHITE BLOOD COUNT (AUTO) 6.4 K/uL (4.3-11.0)
[2018-12-31 07:40] LABS: ALBUMIN 2.1 g/dL (3.4-5.0); BILIRUBIN,TOTAL 2.9 mg/dL (0.2-1.0); CALCIUM, SERUM 8.4 mg/dL (8.5-10.1); CREATININE 1.3 mg/dL (0.6-1.3); MAGNESIUM 1.5 mg/dL (1.8-2.4); PHOSPHORUS 3.9 mg/dL (2.5-4.9); POTASSIUM 3.2 mmol/L (3.5-5.1); TOTAL PROTEIN, SERUM 6.3 g/dL (6.4-8.2)
--- NOTE | 2018-12-31 07:48 | NUR ---
MS RN OPENING NOTES RECEIVED PT SITTING UP IN BED, RESTING COMFORTABLY. PT IS EASILY AROUSABLE. RESPIRATIONS ARE EVEN AND UNLABORED, NOT IN ANY ACUTE DISTRESS NOTED. PT DENIES ANY PAIN AT THIS TIME, NO C/O SOB, N/V. MIDLINE TO COREEN INTACT, NO INFILTRATION NOTED. DRESSING KEPT CLEAN AND DRY. SAFETY MEASURES ARE IN PLACE. INSTRUCTED PT TO USE CALL LIGHT WHEN ASSISTANCE IS NEEDED, CALL LIGHT IS LEFT WITHIN REACH. WILL MONITOR THROUGHOUT SHIFT FOR CONTINUITY OF CARE.
[2018-12-31 08:00] VITALS: BP 118/56
[2018-12-31] MEDS: ASPIRIN EC 81 MG TABLET.DR PO SCH (08:12)
[2018-12-31] MEDS: FUROSEMIDE 100 MG/10 ML VIAL IV SCH ×3 (08:12→16:13)
[2018-12-31] MEDS: CARVEDILOL 3.125 MG TABLET PO SCH ×2 (08:12→16:14)
[2018-12-31] MEDS: glipiZIDE 5 MG TABLET PO SCH ×2 (08:12→16:14)
[2018-12-31] MEDS: METOLAZONE 2.5 MG TABLET PO SCH (08:12)
[2018-12-31] MEDS: HEPARIN SODIUM, PORCINE 5000 UNITS/1 ML VIAL SQ SCH ×2 (08:14→21:08)
[2018-12-31] MEDS: HYDROCODONE/APAP 5/325MG 1 EACH TABLET PO PRN (08:17)
[2018-12-31] MEDS ORDERED: POTASSIUM CHLORIDE 20 MEQ TAB.PRT.SR PO ONE (08:30)
[2018-12-31] MEDS ORDERED: DEXTROSE 50%-WATER 50 ML DISP.SYRIN IV PRN (08:30)
[2018-12-31 08:43] LABS: BILIRUBIN,DIRECT 1.6 mg/dL (0.0-0.2); BILIRUBIN,TOTAL 2.9 mg/dL (0.2-1.0)
--- NOTE | 2018-12-31 11:06 | NUR ---
MS RN NOTES-- PT SEEN AND EXAMINED BY CHERY PETERSON W/ ORDERS FOR IBUPROFEN 200-400MG PO Q8H PRN. ORDERS READ BACK AND VERIFIED. NOTED AND CARRIED OUT.
[2018-12-31] MEDS: BLOOD SUGAR DIAGNOSTIC 1 EACH STRIP VI SCH ×3 (11:29→21:12)
[2018-12-31] MEDS ORDERED: IBUPROFEN 200 MG TABLET PO PRN (11:30)
--- NOTE | 2018-12-31 12:28 | NUR ---
MS RN NOTES-- RECEIVED ORDERS FROM CHERY PETERSON TO CANCEL MRCP.
--- NOTE | 2018-12-31 13:46 | NUR ---
MS RN NOTES-- NEW MIDLINE INSERTED BY MIDLINE NURSE JG WALLER. PT TOLERATED WELL.
--- NOTE | 2018-12-31 13:57 | NUR ---
MS RN NOTES-- CALLED PHARMACY, SPOKE W/ YUMIKO, RE: MG LEVEL OF 1.5. PER YUMIKO, THEY CANNOT KEEP REPLACING MG FOR MORE THAN 3 DAYS. NOTIFIED CHERY PETERSON W/ ORDERS FOR MAG OXIDE 400MG PO X1. ORDERS READ BACK AND VERIFIED. NOTED AND CARRIED OUT. WILL CONTINUE TO MONITOR.
[2018-12-31] MEDS ORDERED: MAGNESIUM OXIDE 400 MG TABLET PO ONE ×2 (14:00→22:00)
--- NOTE | 2018-12-31 15:33 | NUR ---
MS RN NOTES-- PT SEEN AND EXAMINED BY DR. RODRIGUEZ W/ ORDERS TO REPEAT LFT, DIRECT/INDIRECT BILIRUBIN. ORDERS READ BACK AND VERIFIED. NOTED AND CARRIED OUT.
[2018-12-31 16:10] VITALS: BP 107/72
[2018-12-31] MEDS: IBUPROFEN 400 MG TABLET PO PRN (18:23)
--- NOTE | 2018-12-31 18:28 | NUR ---
MS RN CLOSING NOTES ALL DUE NEEDS MET AND RENDERED. PT IS A/O X4, AFEBRILE. RESPIRATIONS ARE EVEN AND UNLABORED, NOT IN ANY ACUTE DISTRESS NOTED. PT DENIES ANY PAIN AT THIS TIME, NO C/O SOB, N/V. MIDLINE TO SRIDHAR INTACT, NO INFILTRATION NOTED. DRESSING KEPT CLEAN AND DRY. SAFETY MEASURES ARE IN PLACE. REMINDED PT TO USE CALL LIGHT WHEN ASSISTANCE IS NEEDED. WILL ENDORSE TO NEXT SHIFT FOR CONTINUITY OF CARE.
--- NOTE | 2018-12-31 19:00 | NUR ---
MS RN OPENING NOTES Patient received sitting up in bed, alert, oriented x 4. Breathing even and unlabored. Not in any distress. No complaints at this time. SRIDHAR midline intact, no signs of infiltration. Safety measures in place; call light within reach. Bed in lowest, locked position. Encouraged to call for assistance. Will continue to monitor accordingly
[2018-12-31 20:00] VITALS: BP 120/77
[2018-12-31] MEDS: *INSULIN REGULAR(HUMULIN R)HUM 100 UNIT/ML VIAL SQ PRN (21:21)
--- NOTE | 2018-12-31 21:25 | NUR ---
RN NOTES BSL- 167 mg/dL. 3 units insulin coverage given per sliding scale
[2019-01-01] MEDS: BLOOD SUGAR DIAGNOSTIC 1 EACH STRIP VI SCH ×4 (06:42→22:05)
[2019-01-01] MEDS: INSULIN REGULAR, HUMAN 100 UNIT/ML 3 ML VIAL SQ PRN ×4 (06:44→16:59)
--- NOTE | 2019-01-01 06:46 | NUR ---
RN NOTES BSL- 131 mg/dL. 2 units insulin coverage given per sliding scale
--- NOTE | 2019-01-01 06:51 | NUR ---
MS RN CLOSING NOTES Patient resting in bed, alert, oriented x 4. Breathing even and unlabored. Not in any distress. No complaints at this time. No acute changes overnight. Safety measures in place; call light within reach. Bed in low, locked position. Will endorse SHIRLEY to oncoming RN.
[2019-01-01 07:03] LABS: BASOPHILS % (AUTO) 0.5 % (0.0-2.0); EOSINOPHILS % (AUTO) 3.1 % (0.0-6.0); HEMATOCRIT 40 % (39-51); HEMOGLOBIN 12.4 g/dL (13.5-17.5); LYMPHOCYTES # (AUTO) 1.8 /CMM (0.8-4.8); LYMPHOCYTES % (AUTO) 23.3 % (20.0-44.0); MEAN CORPUSCULAR HGB CONC 31 g/dl (31.0-36.0); MEAN CORPUSCULAR VOLUME 88 fL (80-96); MONOCYTES # (AUTO) 0.8 /CMM (0.1-1.30); MONOCYTES % (AUTO) 10.7 % (2.0-12.0); NEUTROPHILS # (AUTO) 4.7 /CMM (1.8-8.9); NEUTROPHILS % (AUTO) 62.4 % (43.0-81.0); PLATELET COUNT (AUTO) 142 /CMM (150-450); RED BLOOD CELL COUNT(AUTO) 4.52 MIL/uL (4.5-6.0); WHITE BLOOD COUNT (AUTO) 7.6 K/uL (4.3-11.0)
[2019-01-01 07:22] LABS: BILIRUBIN,DIRECT 1.4 mg/dL (0.0-0.2); BILIRUBIN,TOTAL 2.7 mg/dL (0.2-1.0); CALCIUM, SERUM 8.4 mg/dL (8.5-10.1); CREATININE 1.4 mg/dL (0.6-1.3); MAGNESIUM 1.5 mg/dL (1.8-2.4); PHOSPHORUS 4.6 mg/dL (2.5-4.9); POTASSIUM 3.1 mmol/L (3.5-5.1); TOTAL PROTEIN, SERUM 6.2 g/dL (6.4-8.2)
--- NOTE | 2019-01-01 07:40 | NUR ---
MS RN OPENING NOTES RECEIVED PT SITTING UP IN BED, RESTING COMFORTABLY. PT IS EASILY AROUSABLE. RESPIRATIONS ARE EVEN AND UNLABORED, NOT IN ANY ACUTE DISTRESS NOTED. PT DENIES ANY PAIN AT THIS TIME, NO C/O SOB, N/V. MIDLINE TO SRIDHAR INTACT, NO INFILTRATION NOTED. DRESSING KEPT CLEAN AND DRY. SAFETY MEASURES ARE IN PLACE. INSTRUCTED PT TO USE CALL LIGHT WHEN ASSISTANCE IS NEEDED, CALL LIGHT IS LEFT WITHIN REACH. WILL MONITOR THROUGHOUT SHIFT FOR CONTINUITY OF CARE.
[2019-01-01 08:00] VITALS: BP_SYST 121; BP_DIAS 74; BP_DIAS 76
[2019-01-01] MEDS: METOLAZONE 2.5 MG TABLET PO SCH (08:34)
[2019-01-01] MEDS: glipiZIDE 5 MG TABLET PO SCH ×2 (08:34→16:48)
[2019-01-01] MEDS: POTASSIUM CHLORIDE 20 MEQ TAB.PRT.SR PO SCH ×5 (08:34→12:15)
[2019-01-01] MEDS: Magnesium 1GM/D5W 100ML PREMIX 100 ML IV SCH ×2 (08:34→09:34)
[2019-01-01] MEDS: CARVEDILOL 3.125 MG TABLET PO SCH ×2 (08:34→16:48)
[2019-01-01] MEDS: ASPIRIN EC 81 MG TABLET.DR PO SCH (08:34)
[2019-01-01] MEDS: FUROSEMIDE 100 MG/10 ML VIAL IV SCH ×3 (08:35→16:48)
[2019-01-01] MEDS: HEPARIN SODIUM, PORCINE 5000 UNITS/1 ML VIAL SQ SCH (08:50)
--- NOTE | 2019-01-01 12:10 | NUR ---
MS RN NOTES-- PT SEEN AND EXAMINED BY CHERY PETERSON W/ ORDERS FOR VENOUS DUPLEX TO BLE TO R/O DVT.
[2019-01-01 16:00] VITALS: BP 126/76
--- NOTE | 2019-01-01 17:30 | NUR ---
MS MCKOY NOTES-- RELAYED DUPLEX RESULTS TO CHERY PETERSON W/ NO NEW ORDERS.
--- NOTE | 2019-01-01 19:40 | NUR ---
RN OPENING NOTES RECEIVED PATIENT AWAKE, RESTING IN BED COMFORTABLY. PATIENT IS A/O X 4. RESPIRATIONS EVEN AND UNLABORED. NO RESPIRATORY DISTRESS. DENIES SOB. PATIENT DENIES PAIN AT THIS TIME. IV SITE: [facility] MIDLINE INTACT AND PATENT. SAFETY PRECAUTIONS IMPLEMENTED; CALL LIGHT WITHIN REACH, BED LOW, BED LOCKED, SIDE RAILS UP X2. ENCOURAGED TO CALL FOR ASSISTANCE. WILL CONTINUE TO MONITOR PATIENT.
[2019-01-01 20:00] VITALS: BP 111/80
[2019-01-01] MEDS: *INSULIN REGULAR(HUMULIN R)HUM 100 UNIT/ML VIAL SQ PRN (22:08)
--- NOTE | 2019-01-01 22:10 | NUR ---
RN NOTES REGULAR INSULIN 4 UNITS GIVEN. ADMINISTERED ON LEFT DELTOID. SNACKS OFFERED.
[2019-01-01] MEDS: IBUPROFEN 400 MG TABLET PO PRN (22:49)
[2019-01-02] MEDS: INSULIN REGULAR, HUMAN 100 UNIT/ML 3 ML VIAL SQ PRN ×3 (06:42→18:10)
[2019-01-02 06:49] LABS: BASOPHILS # (AUTO) 0.1 /CMM (0.0-0.2); BASOPHILS % (AUTO) 0.8 % (0.0-2.0); EOSINOPHILS % (AUTO) 3.4 % (0.0-6.0); HEMATOCRIT 41 % (39-51); LYMPHOCYTES # (AUTO) 1.9 /CMM (0.8-4.8); LYMPHOCYTES % (AUTO) 25.9 % (20.0-44.0); MEAN CORPUSCULAR HGB CONC 32 g/dl (31.0-36.0); MEAN CORPUSCULAR VOLUME 88 fL (80-96); MONOCYTES # (AUTO) 0.9 /CMM (0.1-1.30); MONOCYTES % (AUTO) 11.3 % (2.0-12.0); NEUTROPHILS # (AUTO) 4.4 /CMM (1.8-8.9); NEUTROPHILS % (AUTO) 58.6 % (43.0-81.0); PLATELET COUNT (AUTO) 140 /CMM (150-450); RED BLOOD CELL COUNT(AUTO) 4.68 MIL/uL (4.5-6.0); WHITE BLOOD COUNT (AUTO) 7.5 K/uL (4.3-11.0)
[2019-01-02] MEDS: BLOOD SUGAR DIAGNOSTIC 1 EACH STRIP VI SCH ×4 (06:49→23:16)
[2019-01-02 06:52] LABS: ALBUMIN 2.1 g/dL (3.4-5.0); BILIRUBIN,TOTAL 2.5 mg/dL (0.2-1.0); CALCIUM, SERUM 8.4 mg/dL (8.5-10.1); CREATININE 1.5 mg/dL (0.6-1.3); MAGNESIUM 1.7 mg/dL (1.8-2.4); PHOSPHORUS 4.8 mg/dL (2.5-4.9); POTASSIUM 3.3 mmol/L (3.5-5.1); TOTAL PROTEIN, SERUM 6.6 g/dL (6.4-8.2)
--- NOTE | 2019-01-02 07:03 | NUR ---
RN CLOSING NOTES PATIENT RESTING IN BED, ALERT AND ORIENTED X4. NO SIGNS OF RESPIRATORY DISTRESS. DENIES SOB. NO ACUTE CHANGES OVERNIGHT. SAFETY PRECAUTIONS IMPLEMENTED; CALL LIGHT WITHIN REACH, BED IN LOWEST POSITION, LOCKED POSITION, SIDE RAILS UP X2. ENCOURAGED TO CALL FOR ASSISTANCE. ENDORSED CARE TO EAN NIETO.
--- NOTE | 2019-01-02 07:35 | NUR ---
MS RN OPENING NOTES PATIENT IN BED RESTING, AWAKE, ALERT AND ORIENTEDX4. PATIENT IN NO ACUTE DISTRESS. NO SOB NOTED. PATIENT BREATHING ON ROOM AIR SATURATING > 95% 02. PATIENT BREATHING IS EVEN AND UNLABORED. PATIENT WITH URINAL AT THE BEDSIDE. NO PAIN OR DISCOMFORT AT THIS TIME. PATIENT BED IS LOCKED AND IN LOWEST POSITION. CALL LIGHT WITHIN REACH. WILL CONTINUE TO MONITOR.
[2019-01-02 08:00] VITALS: BP 114/85
[2019-01-02] MEDS ORDERED: acetaZOLAMIDE SODIUM 500 MG/VIAL VIAL IV ONE (08:30)
[2019-01-02] MEDS: CARVEDILOL 3.125 MG TABLET PO SCH ×2 (09:00→17:00)
[2019-01-02] MEDS: POTASSIUM CHLORIDE 20 MEQ TAB.PRT.SR PO SCH ×3 (10:16→14:35)
[2019-01-02] MEDS: IBUPROFEN 400 MG TABLET PO PRN (10:17)
[2019-01-02] MEDS: ASPIRIN EC 81 MG TABLET.DR PO SCH (10:17)
[2019-01-02] MEDS: glipiZIDE 5 MG TABLET PO SCH ×2 (10:17→18:02)
[2019-01-02] MEDS ORDERED: Magnesium 1GM/D5W 100ML PREMIX 100 ML IV SCH (11:18)
--- NOTE | 2019-01-02 14:25 | NUR ---
manager wealth management Marine met with DANETTE informing her that pt. is stating that his mother did not speak with SW and get referrals to independent living facilities. DANETTE informed Marine that she spoke with pt's mother Paulette on 12/26/18 and gave her contact information for independent living facilities. DANETTE met with pt. bedside and informed him that SW had spoken to his mother on 12/26 and provided her with information for independent living facilities. Pt. stated, " my mother has spoken to several people, I am not sure." DANETTE left contact information for [facility] and [facility] for the pt. to give to his mother Paulette.
[2019-01-02 16:00] VITALS: BP 128/82
--- NOTE | 2019-01-02 19:34 | NUR ---
MS RN CLOSING NOTE PATIENT IN BED RESTING COMFORTABLY.PATIENT BREATHING ON ROOM AIR >95% O2. PATIENT BREATHING IS EVEN AND UNLABORED. PATIENT IN NO ACUTE DISTRESS. NO SOB NOTED. PATIENTS FAMILY AT THE BEDSIDE. ALL NURSING NEEDS MET. PATIENT KEPT CLEAN AND DRY. PATIENT IV INTACT. SAFETY PRECAUTIONS IN PLACE. PATIENT BED IS LOCKED AND IN LOWEST POSITION. PATIENT CALL LIGHT WITHIN REACH. ENDORSED CARE TO PM SHIFT FOR SHIRLEY.
--- NOTE | 2019-01-02 19:45 | NUR ---
RN OPENING NOTES RECEIVED REPORT FROM DAYSHIFT RNEMILIA. FOUND Pt AWAKE, RESTING IN BED, FAMILY VISITING AT BEDSIDE. NO S/S OF ACUTE DISTRESS OR SOB NOTED. RESPIRATIONS EVEN AND UNLABORED AT THIS TIME. NO C/O PAIN AT THIS TIME. Pt IS A/OX4, VERBAL, ABLE TO MAKE NEEDS KNOWN. IV ACCESS ON SRIDHAR MIDLINE, #18G, SL. SAFETY MEASURES IN PLACE. BED LOW, LOCKED, HOB ELEVATED, SIDE RAILS UP, CALL LIGHT AND BEDSIDE TABLE WITHIN REACH. WILL CONTINUE TO MONITOR Pt's CONDITION AND SAFETY THROUGHOUT THE NIGHT. POSSIBLE DC IN THE AM.
[2019-01-02 20:00] VITALS: BP 115/77
--- NOTE | 2019-01-02 23:00 | NUR ---
RN NOTES: BG 199. ADMINISTERED 3UN OF INSULIN PER SLIDING SCALE.
[2019-01-02] MEDS: *INSULIN REGULAR(HUMULIN R)HUM 100 UNIT/ML VIAL SQ PRN (23:25)
--- NOTE | 2019-01-03 07:00 | NUR ---
RN CLOSING NOTES NO SIGNIFICANT CHANGES IN Pt's CONDITION. Pt REMAINS STABLE AT THIS TIME. NO S/S OF ACUTE DISTRESS OR SOB NOTED DURING THE NIGHT. ALL NEEDS MET AND ATTENDED TO. SAFETY MEASURES IN PLACE. WILL ENDORSE TO DAYSHIFT RN FOR Pt's SHIRLEY.
--- NOTE | 2019-01-03 07:05 | NUR ---
RN NOTES BG 152. ADMINISTERED 2UN OF INSULIN PER SLIDING SCALE.
[2019-01-03] MEDS: BLOOD SUGAR DIAGNOSTIC 1 EACH STRIP VI SCH ×4 (07:10→22:35)
[2019-01-03] MEDS: INSULIN REGULAR, HUMAN 100 UNIT/ML 3 ML VIAL SQ PRN ×2 (07:15→17:16)
--- NOTE | 2019-01-03 07:39 | NUR ---
MS RN OPENING NOTES RECEIVED PT AWAKE, IN BED, A/O X4. TOLERATING RA WITH NO ACUTE RESPIRATORY DISTRESS. PT STATED PAIN BOTH FEET, ADDED THEY GAVE HIM IBUPROFEN AND IT WAS EFFECTIVE. PT REQUESTING FOR NORCO INCLUDED IN HIS MORNING MEDICINES. PAIN DESCRIBED TINGLING SENSATION AND LIKE PINS ON HIS FEET. PT HAS NO OTHER CONCERNS AT THIS MOMENT. PIV TO SRIDHAR MIDLINE G18 SL, FLUSHED WITH NS, INTACT AND OPERATIONAL. PT KEPT COMFORTABLE. PT'S BED IN LOWEST LOCKED POSITION WITH SR X2. CALL LIGHT AND FLUIDS KEPT WITHIN REACH. WILL CONTINUE PLAN OF CARE.
[2019-01-03 08:00] VITALS: BP 111/80
[2019-01-03] MEDS: ASPIRIN EC 81 MG TABLET.DR PO SCH (08:24)
[2019-01-03] MEDS: glipiZIDE 5 MG TABLET PO SCH ×2 (08:24→16:55)
[2019-01-03] MEDS: HYDROCODONE/APAP 5/325MG 1 EACH TABLET PO PRN ×2 (08:24→17:19)
[2019-01-03] MEDS: CARVEDILOL 3.125 MG TABLET PO SCH ×2 (08:27→16:56)
--- NOTE | 2019-01-03 08:30 | NUR ---
MS RN NOTES SEEN AND EVALUATED BY DR ZIEGLER. /DR ZIEGLER AWARE OF TINGLING SENSATIONS ON THE FEET. EXPLAINED TO PT REASONS WHY. PT WILL BE BACK TO [facility] PER . TO PUT ORDERS. WILL CONTINUE TO MONITOR.
[2019-01-03] MEDS: FUROSEMIDE 40 MG TABLET PO SCH (08:36)
[2019-01-03] MEDS: POTASSIUM CHLORIDE 20 MEQ TAB.PRT.SR PO SCH (08:36)
[2019-01-03] MEDS: LOSARTAN POTASSIUM 50 MG TABLET PO SCH (08:36)
[2019-01-03] MEDS ORDERED: LOSA50TA3 PO (09:26)
[2019-01-03] MEDS ORDERED: POTA20TA83 PO (09:26)
[2019-01-03] MEDS ORDERED: FURO40TA5 PO (09:26)
[2019-01-03] MEDS ORDERED: CARV3.122 PO (09:26)
--- NOTE | 2019-01-03 09:44 | NUR ---
SW received a call from pt's mother requesting a call back regarding placement. SW contacted pt's mother and informed her that she had spoken with her on 12/26 and given her the contacts to independent living facilities. Pt's mother stated, she can't seem to remember. DANETTE again gave her the contact number to [facility] and [facility] placement at .
[2019-01-03 10:00] LABS: BASOPHILS # (AUTO) 0.1 /CMM (0.0-0.2); BASOPHILS % (AUTO) 0.7 % (0.0-2.0); EOSINOPHILS % (AUTO) 3.4 % (0.0-6.0); HEMATOCRIT 42 % (39-51); HEMOGLOBIN 13.4 g/dL (13.5-17.5); LYMPHOCYTES % (AUTO) 27.5 % (20.0-44.0); MEAN CORPUSCULAR HGB CONC 32 g/dl (31.0-36.0); MEAN CORPUSCULAR VOLUME 90 fL (80-96); MONOCYTES # (AUTO) 0.7 /CMM (0.1-1.30); NEUTROPHILS # (AUTO) 4.2 /CMM (1.8-8.9); NEUTROPHILS % (AUTO) 58.4 % (43.0-81.0); PLATELET COUNT (AUTO) 151 /CMM (150-450); RED BLOOD CELL COUNT(AUTO) 4.71 MIL/uL (4.5-6.0); WHITE BLOOD COUNT (AUTO) 7.2 K/uL (4.3-11.0)
[2019-01-03 10:11] LABS: ALBUMIN 2.3 g/dL (3.4-5.0); BILIRUBIN,TOTAL 2.3 mg/dL (0.2-1.0); CALCIUM, SERUM 8.4 mg/dL (8.5-10.1); CREATININE 1.4 mg/dL (0.6-1.3); MAGNESIUM 1.8 mg/dL (1.8-2.4); PHOSPHORUS 4.1 mg/dL (2.5-4.9); POTASSIUM 3.7 mmol/L (3.5-5.1); TOTAL PROTEIN, SERUM 7.1 g/dL (6.4-8.2)
[2019-01-03] MEDS: DOCUSATE SODIUM 100 MG CAPSULE PO SCH ×2 (11:58→16:55)
[2019-01-03] MEDS: *INSULIN REGULAR(HUMULIN R)HUM 100 UNIT/ML VIAL SQ PRN ×2 (12:11→22:56)
[2019-01-03 16:00] VITALS: BP 124/73
--- NOTE | 2019-01-03 18:47 | NUR ---
MS OLIVE PICKER NOTES PT AWAKE, IN BED, A/O X4. TOLERATING RA WITH NO ACUTE RESPIRATORY DISTRESS. PT DENIES ANY PAIN OR DISCOMFORT AT THIS TIME. PIV TO SRIDHAR MIDLINE G18 SL, FLUSHED WITH NS, INTACT AND OPERATIONAL. ALL NEEDS AND CARE PROVIDED AND ATTENDED. PT KEPT COMFORTABLE. PT'S BED IN LOWEST LOCKED POSITION WITH SR X2. CALL LIGHT AND FLUIDS KEPT WITHIN REACH. WILL ENDORSE TO INCOMING NURSE FOR SHIRLEY. Addendum: 01/03/19 at 1852 by LINO MCCABE RN WRONG DOCUMENTATION
--- NOTE | 2019-01-03 18:52 | NUR ---
MS RN CLOSING NOTES PT AWAKE, IN BED, A/O X4. TOLERATING RA WITH NO ACUTE RESPIRATORY DISTRESS. PT DENIES ANY PAIN OR DISCOMFORT AT THIS TIME. PIV TO SRIDHAR MIDLINE G18 SL, FLUSHED WITH NS, INTACT AND OPERATIONAL. ALL NEEDS AND CARE PROVIDED AND ATTENDED. PT KEPT COMFORTABLE. PT'S BED IN LOWEST LOCKED POSITION WITH SR X2. CALL LIGHT AND FLUIDS KEPT WITHIN REACH. WILL ENDORSE TO INCOMING NURSE FOR SHIRLEY.
--- NOTE | 2019-01-03 19:40 | NUR ---
RN OPENING NOTES RECEIVED REPORT FROM AMELIA RNIZA. FOUND Pt AWAKE, RESTING IN BED. NO S/S OF ACUTE DISTRESS OR SOB NOTED. RESPIRATIONS EVEN AND UNLABORED AT THIS TIME. NO C/O SEVERE PAIN AT THIS TIME. Pt IS A/OX4, VERBAL, ABLE TO MAKE NEEDS KNOWN. IV ACCESS ON SRIDHAR MIDLINE, #18G, SL. SAFETY MEASURES IN PLACE. BED LOW, LOCKED, HOB ELEVATED, SIDE RAILS UP, CALL LIGHT AND BEDSIDE TABLE WITHIN REACH. WILL CONTINUE TO MONITOR Pt's CONDITION AND SAFETY THROUGHOUT THE NIGHT.
[2019-01-03 20:00] VITALS: BP 100/68
--- NOTE | 2019-01-03 23:00 | NUR ---
RN NOTES HS ACCUCHECK BG 186. ADMINISTERED 3UN OF INSULIN PER SLIDING SCALE.
--- NOTE | 2019-01-04 05:29 | NUR ---
RN NOTES Pt REFUSED AM LAB DRAW AT THIS TIME. REQUESTED FOR THEM TO COME BACK AFTER BREAKFAST.
[2019-01-04] MEDS: BLOOD SUGAR DIAGNOSTIC 1 EACH STRIP VI SCH ×3 (06:35→17:09)
--- NOTE | 2019-01-04 06:35 | NUR ---
RN NOTES AC ACCUCHECK BG 176. ADMINISTERED 3UN OF INSULIN PER SLIDING SCALE.
[2019-01-04] MEDS: INSULIN REGULAR, HUMAN 100 UNIT/ML 3 ML VIAL SQ PRN ×3 (06:42→17:11)
[2019-01-04 07:36] LABS: BASOPHILS # (AUTO) 0.1 /CMM (0.0-0.2); BASOPHILS % (AUTO) 0.8 % (0.0-2.0); EOSINOPHILS % (AUTO) 3.7 % (0.0-6.0); HEMATOCRIT 42 % (39-51); HEMOGLOBIN 13.2 g/dL (13.5-17.5); LYMPHOCYTES # (AUTO) 2.1 /CMM (0.8-4.8); LYMPHOCYTES % (AUTO) 30.4 % (20.0-44.0); MEAN CORPUSCULAR HGB CONC 32 g/dl (31.0-36.0); MEAN CORPUSCULAR VOLUME 89 fL (80-96); MONOCYTES # (AUTO) 0.8 /CMM (0.1-1.30); MONOCYTES % (AUTO) 12.4 % (2.0-12.0); NEUTROPHILS # (AUTO) 3.6 /CMM (1.8-8.9); NEUTROPHILS % (AUTO) 52.7 % (43.0-81.0); PLATELET COUNT (AUTO) 156 /CMM (150-450); WHITE BLOOD COUNT (AUTO) 6.8 K/uL (4.3-11.0)
--- NOTE | 2019-01-04 07:52 | NUR ---
RN OPENING NOTES RECEIVED PATIENT AWAKE IN BED IN NO ACUTE SIGNS OF DISTRESS. A/O X 4. ABLE TO MAKE NEEDS KNOWN. DENIES ANY PAIN OR DISCOMFORT AT THIS TIME. ON RA WITH SPO2 OF 96%. BREATHING EVEN AND UNLABORED. WITH SRIDHAR MIDLINE #18, SL. SAFETY MEASURES IN PLACE. BED LOW, LOCKED, HOB ELEVATED, SIDE RAILS UP, CALL LIGHT AND BEDSIDE TABLE WITHIN REACH. WILL CONTINUE TO MONITOR.
[2019-01-04 08:00] VITALS: BP 99/68
[2019-01-04 08:01] LABS: ALBUMIN 2.3 g/dL (3.4-5.0); BILIRUBIN,TOTAL 1.9 mg/dL (0.2-1.0); CALCIUM, SERUM 8.4 mg/dL (8.5-10.1); CREATININE 1.5 mg/dL (0.6-1.3); MAGNESIUM 1.7 mg/dL (1.8-2.4); PHOSPHORUS 4.3 mg/dL (2.5-4.9); TOTAL PROTEIN, SERUM 6.8 g/dL (6.4-8.2)
[2019-01-04] MEDS: DOCUSATE SODIUM 100 MG CAPSULE PO SCH ×2 (08:29→16:59)
[2019-01-04] MEDS: POTASSIUM CHLORIDE 20 MEQ TAB.PRT.SR PO SCH (08:29)
[2019-01-04] MEDS: ASPIRIN EC 81 MG TABLET.DR PO SCH (08:29)
[2019-01-04] MEDS: glipiZIDE 5 MG TABLET PO SCH ×2 (08:29→16:59)
[2019-01-04] MEDS: HYDROCODONE/APAP 5/325MG 1 EACH TABLET PO PRN (08:42)
[2019-01-04] MEDS: CARVEDILOL 3.125 MG TABLET PO SCH ×2 (08:59→17:00)
[2019-01-04] MEDS: LOSARTAN POTASSIUM 50 MG TABLET PO SCH (09:00)
[2019-01-04] MEDS: FUROSEMIDE 40 MG TABLET PO SCH (09:00)
[2019-01-04] MEDS ORDERED: IBUPROFEN 200 MG TABLET PO ONE (10:00)
--- NOTE | 2019-01-04 10:05 | NUR ---
DANETTE received a voicemail message from pt's mother Paulette informing SW that she called [facility] and she did not have any beds available today but to check in with her tomorrow. DANETTE contacted [facility] prior to returning Paulette's call. Per [facility], she will have a bed available today after 12PM. DANETTE then called pt's mother Paulette back and informed her that she spoke with [facility] and she will have a bed available by 12 PM today. Paulette requested if pt. can be discharged tomorrow. DANETTE informed her that per doctor that is not possible since pt.was discharged as of yesterday but the doctor held the discharge per her request. Paultete understood. She further stated that pt's foot is swollen and hurts him when he walks. She is requesting for an X-ray. DANETTE informed her that she will relay her request to the clinic charge nurse. DANETTE contacted SATYA Gaston and updated her with the aforementioned information.
[2019-01-04] MEDS: Magnesium 1GM/D5W 100ML PREMIX 100 ML IV SCH ×2 (12:26→13:56)
--- NOTE | 2019-01-04 13:38 | NUR ---
RN NOTES SPOKE TO PT THAT WE WILL PROVIDE TAXI FOR HIM TO GO TO [facility] BUT DECLINED AND STATED THAT HIS DAUGHTER BIN WILL PICK AND TAKE HIM TO [facility] AFTER WORK. CN MADE AWARE.
--- NOTE | 2019-01-04 15:14 | NUR ---
DANETTE received a call from pt's mother stating that she spoke with [facility] and there will be a bed available for the pt. at the [place] location. Pt's mother stated, [facility] is sending someone to case picker the $600 love from her. DANETTE informed pt. that welfare case worker Marine spoke with [facility] and she will be calling her with the address to the location pt. is going to. DANETTE informed pt' mother that taxi transportation will be provided for the pt. to his new location. DANETTE also informed welfare case worker Marine that pt's mom would like to be called when pt. is heading to the independent living.
[2019-01-04 16:00] VITALS: BP 104/71
[2019-01-04 17:00] VITALS: BP 104/71
--- NOTE | 2019-01-04 18:43 | NUR ---
RN NOTES PATIENT IS FOR DISCHARGE TONIGHT. ALL DISCHARGED PAPERS SIGNED, SAME GIVEN DISCHARGED INSTRUCTIONS AND VERBALIZED UNDERSTANDING. PT EVEN ASKED TO REMOVED MIDLINE ON SRIDHAR AND WAS REMOVED WITH NO BLEEDING NOTED, PRESSURE DRESSING APPLIED. THEN WHEN PT IS CHANGING ASSISTED BY EDUCATION MANAGERS, PT SAID THAT HE'S HAVING SOB. SP02 CHECKED AND WAS 99-100% ON ROOM AIR. HE SAID THAT HE DIDN'T WANT TO BE DISCHARGED TONIGHT BECAUSE HE'S NOT FEELING WELL AND HAVING SOB. CHARGE NURSE PRUDENCE MADE AWARE. WILL TRY TO WAIT PT UNTIL WILL RELAX AND DISCHARGE PT.
--- NOTE | 2019-01-04 20:00 | NUR ---
RN OPENING NOTES [facility] WAS INFORMED BY THEM THAT AFTER Pt SIGNED HIS DISCHARGE PAPERS AND THE IV WAS REMOVED, Pt CHANGED HIS MIND AND DID NOT WANT TO BE DISCHARGED TONIGHT. SPOKE WITH Pt AT CHANGE OF SHIFT AND Pt STATED HE HAD PANICKED A BIT AND GOT NERVOUS ABOUT EVERYTHING, WHICH IS WHY HE SUDDENLY CHANGED HIS MIND. BUT ONCE Pt WAS REASSURED THAT EVERYTHING WAS FINE AND THAT HIS SYMPTOMS HAVE IMPROVED DRASTICALLY, AND THAT FOR WHATEVER REASON HE FEELS HE NEEDS IMMEDIATE MEDICAL ATTENTION THAT HE CAN ALWAYS COME TO THE ER HERE; Pt AGREED TO BE DISCHARGED AGAIN AND SAID HE WILL LEAVE TONIGHT. UPON TALKING WITH THE [facility], HE SAID THAT THE DAUGHTER, WHO WILL BE PICKING UP THE Pt, WILL BE THE ONE TRANSPORTING THE Pt TO [facility]. Pt IS SITTING IN BED, WAITING FOR HIS DAUGHTER TO ARRIVE. WILL ASSIST Pt DOWNSTAIRS WHEN READY.
--- NOTE | 2019-01-04 20:45 | NUR ---
STATE WILDLIFE OFFICER NOTES (CONTINUED) Pt's DAUGHTER WAS DOWNSTAIRS IN CAR WAITING FOR Pt. Pt WAS SAFELY TRANSPORTED INTO THE CAR BY RN, NIVIA & THEATRE ARTS PROFESSORSAMIRA. ALL Pt's BELONGINGS WERE PLACED IN THE DAUGHTER's CAR WITH Pt. NO S/S OF ACUTE DISTRESS OR SEVERE SOB NOTED.
--- NOTE | 2019-01-04 20:45 | NUR ---
SWITCHBOARD WIRE WORKER HELPER NOTES Pt LEFT SOH VIA WHEELCHAIR, TAKEN BY RN & RESERVATION SALES AGENT STAFF. DISCHARGE EXIT CARE AND PAPER WORK ALREADY DONE DURING DAYSHIFT. Pt's IV ALREADY REMOVED AND SECURED WITH GAUZE AND TAPE. WAITING
--- NOTE | 2019-01-04 21:00 | NUR ---
RN NOTES Pt CALLED THE FACILITY ASKING WHAT THE ADDRESS WAS TO THE [facility]. Pt STATED HE TRIED CALLING HIS MOTHER MULTIPLE TIMES BECAUSE SHE WAS THE ONE WHO KNEW THE ADDRESS, BUT COULD NOT GET A HOLD OF HER. WILL TRY CALLING THE MOTHER MYSELF TO TRY AND FIND OUT WHAT THE ADDRESS OF THE [facility] IS LOCATED.
--- NOTE | 2019-01-04 21:15 | NUR ---
RN NOTES CALLED Pt's MOTHER MULTIPLE TIMES NO ANSWER. . TRIED CALLING [facility], PER CM NOTES [facility] , BUT NO ONE ANSWERED THE PHONE. TRIED CALLING BOTH PARTIES MULTIPLE TIMES. WILL CONTINUE TO TRY TO REACH SOMEONE.
--- NOTE | 2019-01-04 21:35 | NUR ---
RN NOTES Pt's MOTHER FINALLY ANSWERED THE PHONE, SAID SHE WAS ASLEEP AND APOLOGIZED FOR MISSING ALL THE CALLS. Pt's MOTHER SAID SHE ALREADY SPOKE WITH HER SON CHELSEY AND TOLD HIM THE ADDRESS OF THE FACILITY WHICH IS LOCATED AT: [id number] [place] [address].
== END 2019-01-04 20:30 | DRG 194 ==
LOC: ER 03:18 → TELE 05:05 → MED 06:26 → TELE 06:36 → MED 12-26 08:44
PROVIDERS: ADMIT Hospitalist; ATTEND Nurse Practitioner Acute Care
PROC: B547ZZA Ultrasonography of Left Subclavian Vein, Guidance (ICD-10-PCS; principal; 2018-12-26)
PROC: 05H633Z Insertion of Infusion Device into Left Subclavian Vein, Percutaneous Approach (ICD-10-PCS; principal; 2018-12-26)
PROC: 05HD33Z Insertion of Infusion Device into Right Cephalic Vein, Percutaneous Approach (ICD-10-PCS; 2018-12-31)
PROC: B54MZZA Ultrasonography of Right Upper Extremity Veins, Guidance (ICD-10-PCS; 2018-12-31)
DX: I13.0 Hypertensive heart and chronic kidney disease with heart failure and stage 1 through stage 4 chronic kidney disease, or unspecified chronic kidney disease (principal); E11.22 Type 2 diabetes mellitus with diabetic chronic kidney disease; E87.2 Acidosis; I42.9 Cardiomyopathy, unspecified; E11.65 Type 2 diabetes mellitus with hyperglycemia; E83.42 Hypomagnesemia; K81.1 Chronic cholecystitis; R16.0 Hepatomegaly, not elsewhere classified; N18.9 Chronic kidney disease, unspecified; I50.23 Acute on chronic systolic (congestive) heart failure; Z79.82 Long term (current) use of aspirin; Z86.73 Personal history of transient ischemic attack (TIA), and cerebral infarction without residual deficits; Z91.14 Patient's other noncompliance with medication regimen; Z87.891 Personal history of nicotine dependence; R74.0 Nonspecific elevation of levels of transaminase and lactic acid dehydrogenase [LDH]; Z79.84 Long term (current) use of oral hypoglycemic drugs
CPT/HCPCS: 36415; 36569; 71045-TC; 73630-TC; 76700-TC; 78226; 80048-TC; 80053-TC; 80061-TC; 80074; 80076-TC; 81000-TC; 82247-TC; 82248-TC; 82570-TC; 82962-TC; 83605-TC; 83735-TC; 83880; 84100-TC; 84155-TC; 84300-TC; 84484-TC; 85025-TC; 85730-TC; 86706; 87040-TC; 87081-TC; 93307-TC; 93970-TC; 94799-TC; 97110-TC; 97116-TC; 97530-TC; A9537; G0378; J1120; J1644; J1815; J1940; J3475; J7050

== ENCOUNTER 2019-01-04 22:44 | Emergency (ER) | payer MEDICAID ==
[~2019-01-04] VITALS: Ht 182.9 cm; Wt 99.8 kg
[~2019-01-04 22:44] MED LIST changes: +ASPI-1152 PO; +CARV3.122 PO; +FURO40TA5 PO; +LOSA50TA3 PO; +POTA-88 PO; +POTA20TA83 PO
[2019-01-04 23:20] VITALS: BP 101/77
--- NOTE | 2019-01-05 00:18 | NUR ---
PT ELOPED FROM EMERGENCY DEPARTMENT.
--- NOTE | 2019-01-05 00:18 | NUR ---
PT NOT WILLING TO WAIT FOR MANAGER OF IT IN THE AM. "IM NOT HOMELESS AND DONT NEED ANY PLACEMENT" MD AWARE.
== END 2019-01-05 00:21 | disposition left against medical advice (07) ==
LOC: ER 22:51
DX: Z59.9 Problem related to housing and economic circumstances, unspecified (principal); I13.0 Hypertensive heart and chronic kidney disease with heart failure and stage 1 through stage 4 chronic kidney disease, or unspecified chronic kidney disease; I50.9 Heart failure, unspecified; N18.9 Chronic kidney disease, unspecified; E11.22 Type 2 diabetes mellitus with diabetic chronic kidney disease; I25.10 Atherosclerotic heart disease of native coronary artery without angina pectoris; G72.9 Myopathy, unspecified; Z86.73 Personal history of transient ischemic attack (TIA), and cerebral infarction without residual deficits; Z60.2 Problems related to living alone; Z79.82 Long term (current) use of aspirin; Z91.018 Allergy to other foods

== ENCOUNTER 2019-01-30 10:15 | Emergency (ER) | payer MEDICAID ==
[~2019-01-30] VITALS: Ht 182.9 cm; Wt 114.3 kg
[~2019-01-30 10:15] MED LIST changes: -AMLO5TAB9 PO; -FURO-145 PO; -POTA-88 PO
--- NOTE | 2019-01-30 10:41 | NUR ---
BIB SELF53 YEAR OLD MALE C/O LEFT LEG TIGHTNESS, Hx CHF, DENIES ANY PAIN. ALERT AND ORIENTED X4 BREATHING EVEN AND UNLABORED WITH NO DISTERESS NOTED. SKIN INTACT AND WAMR TO TOUCH. AWAITING TO BE SEEN BY .
[2019-01-30] MEDS ORDERED: HYDROCODONE/APAP 5/325MG 1 EACH TABLET ONE (10:49)
[2019-01-30] MEDS ORDERED: HYDROCODONE/APAP 5/325MG 1 EACH TABLET PO ONE (11:00)
[2019-01-30 11:31] VITALS: BP 126/77
--- NOTE | 2019-01-30 11:31 | NUR ---
Patient discharged to home in stable condition. Written and verbal after care instructions given. Patient verbalizes understanding of instruction.
== END 2019-01-30 11:34 | disposition home or self-care (01) ==
LOC: ER 10:15
DX: R60.0 Localized edema (principal); G89.29 Other chronic pain; I11.0 Hypertensive heart disease with heart failure; I50.9 Heart failure, unspecified; Z60.2 Problems related to living alone; Z79.82 Long term (current) use of aspirin; Z88.8 Allergy status to other drugs, medicaments and biological substances
CPT/HCPCS: 93971-TC

== ENCOUNTER 2019-02-07 12:01 | Emergency (ER) | payer MEDICAID ==
[~2019-02-07] VITALS: Ht 182.9 cm; Wt 115.2 kg
[2019-02-07 12:14] VITALS: BP 122/92
== END 2019-02-07 12:53 | disposition home or self-care (01) ==
LOC: ER 12:05
DX: I13.0 Hypertensive heart and chronic kidney disease with heart failure and stage 1 through stage 4 chronic kidney disease, or unspecified chronic kidney disease (principal); E11.22 Type 2 diabetes mellitus with diabetic chronic kidney disease; N18.9 Chronic kidney disease, unspecified; I50.9 Heart failure, unspecified; Z79.899 Other long term (current) drug therapy; Z88.8 Allergy status to other drugs, medicaments and biological substances; Z79.82 Long term (current) use of aspirin

== ENCOUNTER 2019-03-08 14:56 | Emergency (ER) | payer MEDICAID, OTHER ==
[~2019-03-08] VITALS: Ht 190.5 cm; Wt 120.7 kg
--- NOTE | 2019-03-08 15:18 | NUR ---
PATIENT ARRIVED AT UNIT AMBULATORY A/O X 3, VERBALLY RESPONSIVE AND RESPONDS TO VERBAL AND TACTILE STIMULI. REPORTS HE'S HAVING BLE SWELLING AND THAT HE RAN OUT OF LASIX. RESTING ON BED. WILL CONTINUE TO MONITOR
[2019-03-08 16:18] LABS: BASOPHILS # (AUTO) 0.1 /CMM (0.0-0.2); BASOPHILS % (AUTO) 1.2 % (0.0-2.0); EOSINOPHILS % (AUTO) 3.6 % (0.0-6.0); HEMATOCRIT 45 % (39-51); HEMOGLOBIN 14.1 g/dL (13.5-17.5); LYMPHOCYTES # (AUTO) 1.7 /CMM (0.8-4.8); LYMPHOCYTES % (AUTO) 26.1 % (20.0-44.0); MEAN CORPUSCULAR HGB CONC 32 g/dl (31.0-36.0); MEAN CORPUSCULAR VOLUME 91 fL (80-96); MONOCYTES # (AUTO) 0.6 /CMM (0.1-1.30); MONOCYTES % (AUTO) 9.6 % (2.0-12.0); NEUTROPHILS # (AUTO) 3.9 /CMM (1.8-8.9); NEUTROPHILS % (AUTO) 59.5 % (43.0-81.0); PLATELET COUNT (AUTO) 170 /CMM (150-450); RED BLOOD CELL COUNT(AUTO) 4.87 MIL/uL (4.5-6.0); WHITE BLOOD COUNT (AUTO) 6.5 K/uL (4.3-11.0)
--- NOTE | 2019-03-08 16:18 | NUR ---
IV LINE ESTABLISHED, BLOOD DRAWN AND SENT TO LAB
[2019-03-08 16:26] LABS: CALCIUM, SERUM 8.8 mg/dL (8.5-10.1); CARBON DIOXIDE 28 mmol/L (21-32); CHLORIDE 101 mmol/L (98-107); CREATININE 1.4 mg/dL (0.6-1.3); GLUCOSE 187 mg/dL (74-106); POTASSIUM 3.6 mmol/L (3.5-5.1); SODIUM SERUM 139 mmol/L (136-145); UREA NITROGEN, BLOOD 18 mg/dL (7-18)
[2019-03-08 16:39] LABS: B-TYPE NATRIURETIC PEPTIDE 2465 PG/ML (0-125)
[2019-03-08] MEDS ORDERED: FUROSEMIDE 40 MG/4 ML VIAL IV ONE (17:00)
[2019-03-08] MEDS ORDERED: FUROSEMIDE 40 MG/4 ML VIAL ONE (17:01)
[2019-03-08] MEDS ORDERED: FUROSEMIDE 20 MG/2 ML VIAL ONE (17:01)
--- NOTE | 2019-03-08 17:59 | NUR ---
IV removed. Catheter intact and site benign. Pressure and 4x4 applied to site. No bleeding noted.Patient discharged to home in stable condition. Written and verbal after care instructions given. Patient verbalizes understanding of instruction.
[2019-03-08 18:00] VITALS: BP 124/80
== END 2019-03-08 18:01 | disposition home or self-care (01) ==
LOC: ER 15:05
DX: I11.0 Hypertensive heart disease with heart failure (principal); I50.9 Heart failure, unspecified; R60.0 Localized edema; Z60.2 Problems related to living alone; Z79.82 Long term (current) use of aspirin; Z88.8 Allergy status to other drugs, medicaments and biological substances
CPT/HCPCS: 36415; 71045; 80048; 83880; 84484; 85025; 93005; 96374; 99284; J1940 ×2

== ENCOUNTER 2019-03-25 20:26 | Emergency (ER) | payer OTHER ==
[~2019-03-25] VITALS: Ht 182.9 cm; Wt 126.1 kg
--- NOTE | 2019-03-25 20:40 | NUR ---
TO BED 4 AMBULATORY C/O FEELING FLUID RETENTION IN ABDOMEN X1 DAY, BLE SWELLING. PT AAOX4 NO ACUTE DISTRESS NOTED, RESP EVEN AND UNLABORED. PLACE PT ON CARDIAC MONITORING, CONTINUOUS POX. PENDING ER MD SIFUENTES.
--- NOTE | 2019-03-25 20:53 | NUR ---
ER MD AT BEDSIDE TO EVAL PT WITH ORDERS RECEIVED. WILL CARRY OUT ORDERS.
[2019-03-25 21:33] LABS: BASOPHILS # (AUTO) 0.1 /CMM (0.0-0.2); BASOPHILS % (AUTO) 1.4 % (0.0-2.0); HEMATOCRIT 39 % (39-51); HEMOGLOBIN 12.7 g/dL (13.5-17.5); LYMPHOCYTES # (AUTO) 1.6 /CMM (0.8-4.8); LYMPHOCYTES % (AUTO) 23.6 % (20.0-44.0); MEAN CORPUSCULAR HGB CONC 32 g/dl (31.0-36.0); MEAN CORPUSCULAR VOLUME 93 fL (80-96); MONOCYTES # (AUTO) 0.7 /CMM (0.1-1.30); MONOCYTES % (AUTO) 9.8 % (2.0-12.0); NEUTROPHILS # (AUTO) 4.1 /CMM (1.8-8.9); NEUTROPHILS % (AUTO) 61.2 % (43.0-81.0); PLATELET COUNT (AUTO) 143 /CMM (150-450); RED BLOOD CELL COUNT(AUTO) 4.24 MIL/uL (4.5-6.0); WHITE BLOOD COUNT (AUTO) 6.7 K/uL (4.3-11.0)
[2019-03-25 21:45] LABS: CARBON DIOXIDE 25 mmol/L (21-32); CHLORIDE 103 mmol/L (98-107); CREATININE 1.3 mg/dL (0.6-1.3); GLUCOSE 187 mg/dL (74-106); SODIUM SERUM 138 mmol/L (136-145); UREA NITROGEN, BLOOD 23 mg/dL (7-18)
[2019-03-25 22:01] LABS: ALANINE AMINOTRANSFERASE 23 U/L (12-78); ALBUMIN 2.8 g/dL (3.4-5.0); ALKALINE PHOSPHATASE 243 U/L (46-116); ASPARTATE AMINOTRANSFERASE 37 U/L (15-37); B-TYPE NATRIURETIC PEPTIDE 1615 PG/ML (0-125); BILIRUBIN,DIRECT 2.3 mg/dL (0.0-0.2); BILIRUBIN,TOTAL 3.2 mg/dL (0.2-1.0)
[2019-03-25] MEDS ORDERED: FUROSEMIDE 40 MG/4 ML VIAL ONE (22:57)
[2019-03-25] MEDS ORDERED: FUROSEMIDE 40 MG/4 ML VIAL IV ONE (23:00)
--- NOTE | 2019-03-25 23:43 | NUR ---
IV removed. Catheter intact and site benign. Pressure and 4x4 applied to site. No bleeding noted. Patient discharged to home in stable condition. Written and verbal after care instructions given. Patient verbalizes understanding of instruction. ambulatory with a steady gait noted. pt aaox4 no acute distress noted, resp even and unlabored. pt at bedside to take pt home.
[2019-03-25 23:44] VITALS: BP 116/85
== END 2019-03-25 23:44 | disposition home or self-care (01) ==
LOC: ER 20:28
DX: I11.0 Hypertensive heart disease with heart failure (principal); I50.9 Heart failure, unspecified; E11.9 Type 2 diabetes mellitus without complications; R60.0 Localized edema; F17.200 Nicotine dependence, unspecified, uncomplicated; Z88.8 Allergy status to other drugs, medicaments and biological substances; Z60.2 Problems related to living alone; Z79.899 Other long term (current) drug therapy; Z79.82 Long term (current) use of aspirin
CPT/HCPCS: 36415; 71045; 80048; 80076; 83690; 83880; 84484; 85025; 85730; 93005; 96374; 99284; J1940

== ENCOUNTER 2019-04-06 16:07 | Inpatient (IN) | payer OTHER ==
[~2019-04-06] VITALS: Ht 182.9 cm; Wt 112.0 kg
--- NOTE | 2019-04-06 16:12 | NUR ---
PT BIB SELF BILATERAL LOWER EXTREMITY SWELLING, GROIN AREA X 4 DAYS. TAKING LASIX. NO RELIEF, PT IS AAOX4, NOT IN RESPIRATORY DISTRESS, HOOKED TO MONITOR, KEPT RESTED AND COMFORTABLE, WILL CONTINUE TO MONITOR.
[2019-04-06] MEDS ORDERED: ONDANSETRON HCL/PF 4 MG/2 ML VIAL ONE (17:14)
[2019-04-06] MEDS ORDERED: MORPHINE SULFATE INJ 4 MG/ML DISP.SYRIN ONE (17:14)
[2019-04-06] MEDS ORDERED: ONDANSETRON HCL/PF 4 MG/2 ML VIAL IVP ONE (17:30)
[2019-04-06] MEDS ORDERED: MORPHINE SULFATE INJ 2 MG/ML DISP.SYRIN IV ONE (17:30)
[2019-04-06 17:44] LABS: BASOPHILS # (AUTO) 0.1 /CMM (0.0-0.2); BASOPHILS % (AUTO) 1.4 % (0.0-2.0); EOSINOPHILS % (AUTO) 3.3 % (0.0-6.0); HEMATOCRIT 40 % (39-51); LYMPHOCYTES # (AUTO) 1.7 /CMM (0.8-4.8); LYMPHOCYTES % (AUTO) 22.9 % (20.0-44.0); MEAN CORPUSCULAR HGB CONC 33 g/dl (31.0-36.0); MEAN CORPUSCULAR VOLUME 96 fL (80-96); MONOCYTES # (AUTO) 0.9 /CMM (0.1-1.30); MONOCYTES % (AUTO) 11.7 % (2.0-12.0); NEUTROPHILS # (AUTO) 4.6 /CMM (1.8-8.9); NEUTROPHILS % (AUTO) 60.7 % (43.0-81.0); PLATELET COUNT (AUTO) 159 /CMM (150-450); RED BLOOD CELL COUNT(AUTO) 4.17 MIL/uL (4.5-6.0); WHITE BLOOD COUNT (AUTO) 7.6 K/uL (4.3-11.0)
--- NOTE | 2019-04-06 17:45 | NUR ---
IV LINE ESTABLISHED, BLOOD DRAWNED AND SENT TO LAB.
[2019-04-06 17:56] LABS: CALCIUM, SERUM 9.1 mg/dL (8.5-10.1); CARBON DIOXIDE 25 mmol/L (21-32); CHLORIDE 101 mmol/L (98-107); CREATININE 1.3 mg/dL (0.6-1.3); GLUCOSE 180 mg/dL (74-106); POTASSIUM 5.1 mmol/L (3.5-5.1); SODIUM SERUM 136 mmol/L (136-145); UREA NITROGEN, BLOOD 23 mg/dL (7-18)
[2019-04-06 18:08] LABS: ALANINE AMINOTRANSFERASE 25 U/L (12-78); ALBUMIN 3.1 g/dL (3.4-5.0); ALKALINE PHOSPHATASE 264 U/L (46-116); ASPARTATE AMINOTRANSFERASE 48 U/L (15-37); B-TYPE NATRIURETIC PEPTIDE 1966 PG/ML (0-125); BILIRUBIN,DIRECT 2.4 mg/dL (0.0-0.2); BILIRUBIN,TOTAL 3.9 mg/dL (0.2-1.0)
--- NOTE | 2019-04-06 18:37 | NUR ---
TECH AT BEDSIDE FOR DUPLEX SCAN.
[2019-04-06] MEDS ORDERED: LISI-603 PO (18:50)
[2019-04-06] MEDS ORDERED: METF-440 PO (18:50)
--- NOTE | 2019-04-06 19:17 | NUR ---
REPORT GIVEN TO EAN MITCHELL FOR SHIRLEY.
[2019-04-06] MEDS ORDERED: FUROSEMIDE 40 MG/4 ML VIAL IV ONE ×2 (19:30→21:00)
[2019-04-06] MEDS ORDERED: FUROSEMIDE 40 MG/4 ML VIAL ONE (19:45)
[2019-04-06] MEDS ORDERED: MAG HYDROX/AL HYDROX/SIMETH 30 ML UDC PO PRN (21:00)
[2019-04-06] MEDS ORDERED: DEXTROSE 50%-WATER 50 ML DISP.SYRIN IV PRN (21:00)
[2019-04-06] MEDS ORDERED: HYDROCODONE/APAP 5/325MG 1 EACH TABLET PO PRN (21:00)
[2019-04-06] MEDS ORDERED: ONDANSETRON HCL/PF 4 MG/2 ML VIAL IVP PRN (21:00)
[2019-04-06] MEDS ORDERED: Z GUARD REMEDY 2 OZ OINT TP PRN (21:00)
[2019-04-06] MEDS ORDERED: MAGNESIUM HYDROXIDE 30 ML UDC PO PRN (21:00)
[2019-04-06] MEDS ORDERED: ACETAMINOPHEN 325 MG TABLET PO PRN (21:00)
--- NOTE | 2019-04-06 21:24 | NUR ---
REPROT GIVEN TO ASHLEY MCKOY
[2019-04-06] MEDS: BLOOD SUGAR DIAGNOSTIC 1 EACH STRIP IN SCH (22:00)
[2019-04-06 22:10] VITALS: BP 131/92
--- NOTE | 2019-04-06 22:10 | NUR ---
HOMICIDE SQUAD CAPTAINDEPUTY CHIEF EXECUTIVE NOTE RECEIVED PATIENT VIA GURNEY. PATIENT WAS TRANSFERRED TO BED. A/O X4. TOLERATING ROOM AIR. RESPIRATIONS ARE EVEN AND UNLABORED. DENIES SOB, DENIES PAIN. EXTERNAL TELE MONITOR READS SR, 1ST DEGREE BLOCK, WITH PVC, HR 91. IN NO APPARENT DISTRESS AT THIS TIME. IV ACCESS IN RIGHT WRIST #20 PATENT AND SALINE LOCKED. INATAL PHYSICAL COMPLETED AT THIS TIME. PATIENT REFUSED SKIN ASSESSMENT AT THIS TIME. BELONGING LIST COMPLETED BY CONCRETE MIXER LOADER TRUCK MOUNTED. ROOM ORIENTATION GIVEN. BED IS LOW AND LOCKED, SIDE RAILS UP X2, HOB ELEVATED 45 DEGREES. CALL LIGHT WITHIN REACH, WILL CONTINUE TO MONITOR.
--- NOTE | 2019-04-06 23:30 | NUR ---
SENIOR DATA DEVELOPER NOTE ACCU CHECK READ BS 155. NO INSULIN COVERAGE GIVEN D/T PATIENT REFUSED INSULIN. WILL CONTINUE TO MONITOR.
[2019-04-06] MEDS: ENOXAPARIN SODIUM 40 MG/0.4 ML DISP.SYRIN SQ SCH (23:45)
[2019-04-07] VITALS (7 sets, daily range): BP systolic 119–132; BP diastolic 56–90
[2019-04-07] MEDS: BLOOD SUGAR DIAGNOSTIC 1 EACH STRIP IN SCH ×4 (06:13→21:52)
--- NOTE | 2019-04-07 06:15 | NUR ---
SHOE LACER NOTE ACCU CHECK READS BS 136. NO INSULIN COVERAGE GIVEN D/T PATIENT REFUSED. WILL ENDORSE TO NEXT SHIFT.
[2019-04-07 06:28] LABS: BASOPHILS % (AUTO) 0.7 % (0.0-2.0); EOSINOPHILS % (AUTO) 3.5 % (0.0-6.0); HEMATOCRIT 36 % (39-51); HEMOGLOBIN 11.7 g/dL (13.5-17.5); LYMPHOCYTES # (AUTO) 1.7 /CMM (0.8-4.8); LYMPHOCYTES % (AUTO) 25.5 % (20.0-44.0); MEAN CORPUSCULAR HGB CONC 33 g/dl (31.0-36.0); MEAN CORPUSCULAR VOLUME 94 fL (80-96); MONOCYTES # (AUTO) 0.9 /CMM (0.1-1.30); MONOCYTES % (AUTO) 12.6 % (2.0-12.0); NEUTROPHILS # (AUTO) 3.9 /CMM (1.8-8.9); NEUTROPHILS % (AUTO) 57.7 % (43.0-81.0); PLATELET COUNT (AUTO) 140 /CMM (150-450); RED BLOOD CELL COUNT(AUTO) 3.79 MIL/uL (4.5-6.0); WHITE BLOOD COUNT (AUTO) 6.8 K/uL (4.3-11.0)
--- NOTE | 2019-04-07 06:49 | NUR ---
PROJECT CONTROLS SCHEDULER CLOSING NOTE PATIENT IN BED. A/O X4. REMAINS TOLERATING ROOM AIR. RESPIRATIONS ARE EVEN AND UNLABORED. NO SOB NOTED. NO C/O PAIN. EXTERNAL TELE MONITOR READS SR, 1ST DEGREE BLOCK, WITH PVC, HR 91. NO APPARENT DISTRESS THROUGHOUT SHIFT. IV ACCESS MAINTAINED IN RIGHT WRIST #20 PATENT AND SALINE LOCKED. BED IS LOW AND LOCKED, SIDE RAILS UP X2, HOB ELEVATED 45 DEGREES. CALL LIGHT WITHIN REACH, WILL ENDORSE TO NEXT SHIFT FOR SHIRLEY.
[2019-04-07 07:02] LABS: ALBUMIN 2.7 g/dL (3.4-5.0); BILIRUBIN,DIRECT 2.2 mg/dL (0.0-0.2); BILIRUBIN,TOTAL 3.2 mg/dL (0.2-1.0); CALCIUM, SERUM 8.6 mg/dL (8.5-10.1); CREATININE 1.2 mg/dL (0.6-1.3); MAGNESIUM 1.6 mg/dL (1.8-2.4); PHOSPHORUS 3.7 mg/dL (2.5-4.9); POTASSIUM 3.6 mmol/L (3.5-5.1); TOTAL PROTEIN, SERUM 7.5 g/dL (6.4-8.2)
--- NOTE | 2019-04-07 07:15 | NUR ---
MS RN NOTES PATIENT IN BED ALERT ORIENTED X 4. NO ACUTE DISTRESS NOTED. BREATHING UNLABORED. IV ACCESS PATENT AND INTACT. NO REDNESS OR SWELLING NOTED. SAFETY MEASURES IN PLACE. CALL LIGHT WITHIN REACH. WILL CONTINUE TO MONITOR ACCORDINGLY.
[2019-04-07 07:16] LABS: THYROID STIMULATING HORMONE 2.22 uIU/mL (0.358-3.74)
--- NOTE | 2019-04-07 07:20 | NUR ---
GOLF COURSE RANGER NOTE CORRECTION MADE ON PATIENTS WEIGHT. ACTUAL WEIGHT OF PATIENT PER BED SCALE IS 262.5.
[2019-04-07] MEDS: Magnesium 1GM/D5W 100ML PREMIX 100 ML IV SCH ×2 (08:38→09:59)
[2019-04-07] MEDS: ASPIRIN EC 81 MG TABLET.DR PO SCH (08:40)
[2019-04-07] MEDS: POTASSIUM CHLORIDE 20 MEQ TAB.PRT.SR PO SCH ×3 (08:40→11:00)
[2019-04-07] MEDS: CARVEDILOL 12.5 MG TABLET PO SCH ×2 (08:42→20:59)
[2019-04-07] MEDS: LISINOPRIL (20MG) 20 MG TABLET PO SCH (08:43)
[2019-04-07] MEDS: FUROSEMIDE 100 MG/10 ML VIAL IV SCH ×3 (08:45→16:48)
[2019-04-07] MEDS ORDERED: POTASSIUM CHLORIDE 20 MEQ TAB.PRT.SR PO SCH (09:00)
[2019-04-07] MEDS: INSULIN REGULAR, HUMAN 100 UNIT/ML 3 ML VIAL SQ PRN ×2 (12:14→17:34)
--- NOTE | 2019-04-07 15:20 | NUR ---
FILM WAXER NOTES RECEIVED DIETARY RECOMMENDATIONS FROM JESSICA GYROSCOPE REPAIRER TO CHANGE CURRENT DIET TO CCHO 75gram/meal 2 gram sodium with double portion of vegetables, NOTIFIED EDWINA JOE MADE AWARE WITH ORDERS TO CHANGE DIET TO CCHO 75gram/meal 2 gram sodium with double portion of vegetables, NOTED AND CARRIED OUT.
--- NOTE | 2019-04-07 19:00 | NUR ---
MS RN NOTES PATIENT IN BED ALERT ORIENTED X 4. NO ACUTE DISTRESS NOTED. BREATHING UNLABORED. IV ACCESS PATENT AND INTACT, NO REDNESS OR SWELLING NOTED. DUE MEDICATIONS GIVEN, NO ASE NOTED. NEEDS ATTENDED AND ANTICIPATED. SAFETY MEASURES IN PLACE. CALL LIGHT WITHIN REACH. WILL ENDORSE TO NIGHT NURSE FOR CONTINUITY OF CARE.
--- NOTE | 2019-04-07 19:30 | NUR ---
EDUCATION OFFICER OPENING NOTE RECEIVED PATIENT IN BED. A/O X4. TOLERATING ROOM AIR. RESPIRATIONS ARE EVEN AND UNLABORED. NO SOB NOTED AT THIS TIME. DENIES PAIN AT THIS TIME. EXTERNAL TELE MONITOR READ SR WITH PVC WITH HR 85. IN NO APPARENT DISTRESS AT THIS TIME. IV ACCESS IN RIGHT WRIST #20 PATENT AND SALINE LOCKED. BED IS LOW AND LOCKED, SIDE RAILS UP X2, HOB ELEVATED 40 DEGREES. CALL LIGHT WITHIN REACH. WILL CONTINUE TO MONITOR.
--- NOTE | 2019-04-07 19:50 | NUR ---
Met with patient,states he lives in [place]. He is ambulatory and independent with adl's. His mother is his primary source of support and has friends that can assist him if needed. States his friend will provide ride when discharge. Addendum: 04/07/19 at 1950 by BARRINGTON FREY RN Amended: Links added.
[2019-04-07] MEDS: ENOXAPARIN SODIUM 40 MG/0.4 ML DISP.SYRIN SQ SCH (21:01)
--- NOTE | 2019-04-07 21:52 | NUR ---
MONORAIL CAR OPERATOR NOTE ACCU CHECK READ BS 156. NO INSULIN COVERAGE GIVEN D/T PT REFUSED. WILL CONTINUE TO MONITOR.
[2019-04-08] VITALS (7 sets, daily range): BP systolic 115–137; BP diastolic 65–84
--- NOTE | 2019-04-08 06:32 | NUR ---
SITE FOREMAN CLOSING NOTE PATIENT IN BED. A/O X4. REMAINS TOLERATING ROOM AIR. RESPIRATIONS ARE EVEN AND UNLABORED. NO SOB NOTED THROUGHOUT SHIFT. NO C/O PAIN. EXTERNAL TELE MONITOR READ SR WITH PVC WITH HR 85. NO DISTRESS NOTED. IV ACCESS MAINTAINED IN RIGHT WRIST #20 PATENT AND SALINE LOCKED. BED IS LOW AND LOCKED, SIDE RAILS UP X2, HOB ELEVATED 20 DEGREES. CALL LIGHT WITHIN REACH. WILL ENDORSE TO NEXT SHIFT.
[2019-04-08] MEDS: BLOOD SUGAR DIAGNOSTIC 1 EACH STRIP IN SCH ×4 (06:41→21:11)
[2019-04-08] MEDS ORDERED: BUMETANIDE INJ 16 MG in IV NS 0.9% 16 ML IV ONE (07:30)
--- NOTE | 2019-04-08 08:18 | NUR ---
MS RN NOTES FOLLOWED UP WITH PHARMACY REGARDING BUMEX IV NOT AVAILABLE ON THE FLOOR YET, PHARMACY SAID IT WILL BE DELIVERED.
[2019-04-08] MEDS: METOLAZONE 2.5 MG TABLET PO SCH (08:42)
[2019-04-08] MEDS: POTASSIUM CHLORIDE 20 MEQ TAB.PRT.SR PO SCH (08:43)
[2019-04-08] MEDS: ASPIRIN EC 81 MG TABLET.DR PO SCH (08:43)
[2019-04-08] MEDS: LISINOPRIL (20MG) 20 MG TABLET PO SCH (08:44)
[2019-04-08] MEDS: CARVEDILOL 12.5 MG TABLET PO SCH ×2 (08:44→21:09)
[2019-04-08 09:17] LABS: BASOPHILS # (AUTO) 0.1 /CMM (0.0-0.2); BASOPHILS % (AUTO) 1.1 % (0.0-2.0); EOSINOPHILS % (AUTO) 3.5 % (0.0-6.0); HEMATOCRIT 38 % (39-51); HEMOGLOBIN 12.2 g/dL (13.5-17.5); LYMPHOCYTES # (AUTO) 1.5 /CMM (0.8-4.8); LYMPHOCYTES % (AUTO) 24.6 % (20.0-44.0); MEAN CORPUSCULAR HGB CONC 32 g/dl (31.0-36.0); MEAN CORPUSCULAR VOLUME 95 fL (80-96); MONOCYTES # (AUTO) 0.7 /CMM (0.1-1.30); MONOCYTES % (AUTO) 11.3 % (2.0-12.0); NEUTROPHILS # (AUTO) 3.7 /CMM (1.8-8.9); NEUTROPHILS % (AUTO) 59.5 % (43.0-81.0); PLATELET COUNT (AUTO) 151 /CMM (150-450); RED BLOOD CELL COUNT(AUTO) 3.96 MIL/uL (4.5-6.0); WHITE BLOOD COUNT (AUTO) 6.3 K/uL (4.3-11.0)
[2019-04-08 09:42] LABS: ALBUMIN 2.7 g/dL (3.4-5.0); CREATININE 1.3 mg/dL (0.6-1.3); MAGNESIUM 1.9 mg/dL (1.8-2.4); PHOSPHORUS 4.1 mg/dL (2.5-4.9); POTASSIUM 3.9 mmol/L (3.5-5.1); TOTAL PROTEIN, SERUM 7.7 g/dL (6.4-8.2)
[2019-04-08] MEDS: INSULIN REGULAR, HUMAN 100 UNIT/ML 3 ML VIAL SQ PRN ×2 (12:00→17:38)
--- NOTE | 2019-04-08 19:30 | NUR ---
ASPHALT SURFACE HEATER OPERATOR NOTES RECEIVED ON SITTING ON EDGE OF BED,A/O X4,BREATHING REGULAR,NOT IN ANY FORM OF DISTRESS.SALINE LOCK RFA INTACT AND PATENT.ABDOMEN DISTENDED BUT SOFT.VOIDING FREELY PER URINAL.CALL LIGHT IN REACH,NEEDS ANTICIPATED.
[2019-04-08] MEDS: ENOXAPARIN SODIUM 40 MG/0.4 ML DISP.SYRIN SQ SCH (21:11)
--- NOTE | 2019-04-08 21:15 | NUR ---
BERRY PICKER NOTES ACCU-CHECK BLOOD SUGAR CHECK 204,REFUSED INSULIN COVERAGE.
[2019-04-09] VITALS: BP 115/67
--- NOTE | 2019-04-09 04:00 | NUR ---
MORTGAGE BROKER NOTES PER JONH SALVADOR,PATIENT DOESNT WANT BE BOTHER THIS TIME IF HE'S SLEEPING
--- NOTE | 2019-04-09 06:34 | NUR ---
APPLICATION COORDINATOR NOTES FAIRLY RESTED.DENIES CHEST PAIN,REFUSED 4 AM VITAL SIGNS.CALL LIGHT IN REACH,NEEDS ATTENDED.WILL ENDORSE TO DAY NURSE FOR SHIRLEY.
[2019-04-09] MEDS: BLOOD SUGAR DIAGNOSTIC 1 EACH STRIP IN SCH ×4 (07:30→21:16)
[2019-04-09 07:50] LABS: BASOPHILS # (AUTO) 0.1 /CMM (0.0-0.2); BASOPHILS % (AUTO) 0.9 % (0.0-2.0); EOSINOPHILS % (AUTO) 3.9 % (0.0-6.0); HEMATOCRIT 36 % (39-51); HEMOGLOBIN 11.8 g/dL (13.5-17.5); LYMPHOCYTES # (AUTO) 1.5 /CMM (0.8-4.8); LYMPHOCYTES % (AUTO) 24.2 % (20.0-44.0); MEAN CORPUSCULAR HGB CONC 33 g/dl (31.0-36.0); MEAN CORPUSCULAR VOLUME 95 fL (80-96); MONOCYTES # (AUTO) 0.8 /CMM (0.1-1.30); MONOCYTES % (AUTO) 13.5 % (2.0-12.0); NEUTROPHILS # (AUTO) 3.5 /CMM (1.8-8.9); NEUTROPHILS % (AUTO) 57.5 % (43.0-81.0); PLATELET COUNT (AUTO) 143 /CMM (150-450); RED BLOOD CELL COUNT(AUTO) 3.81 MIL/uL (4.5-6.0); WHITE BLOOD COUNT (AUTO) 6.1 K/uL (4.3-11.0)
[2019-04-09 08:00] VITALS: BP 135/72
[2019-04-09 08:07] LABS: ALBUMIN 2.6 g/dL (3.4-5.0); BILIRUBIN,TOTAL 3.4 mg/dL (0.2-1.0); CALCIUM, SERUM 8.7 mg/dL (8.5-10.1); CREATININE 1.2 mg/dL (0.6-1.3); MAGNESIUM 1.6 mg/dL (1.8-2.4); PHOSPHORUS 4.4 mg/dL (2.5-4.9); POTASSIUM 3.3 mmol/L (3.5-5.1); TOTAL PROTEIN, SERUM 7.4 g/dL (6.4-8.2)
[2019-04-09] MEDS: METOLAZONE 2.5 MG TABLET PO SCH (08:20)
[2019-04-09] MEDS: POTASSIUM CHLORIDE 20 MEQ TAB.PRT.SR PO SCH (08:20)
[2019-04-09] MEDS: LISINOPRIL (20MG) 20 MG TABLET PO SCH (08:22)
[2019-04-09] MEDS: BUMETANIDE (1 MG) 1 MG TABLET PO SCH (08:22)
[2019-04-09] MEDS: ASPIRIN EC 81 MG TABLET.DR PO SCH (08:22)
[2019-04-09] MEDS: CARVEDILOL 12.5 MG TABLET PO SCH ×2 (08:23→21:10)
[2019-04-09] MEDS ORDERED: POTASSIUM CHLORIDE 20 MEQ TAB.PRT.SR PO SCH (10:30)
[2019-04-09] MEDS: Magnesium 1GM/D5W 100ML PREMIX 100 ML IV SCH ×2 (10:38→11:47)
[2019-04-09] MEDS: INSULIN REGULAR, HUMAN 100 UNIT/ML 3 ML VIAL SQ PRN ×2 (12:09→21:16)
[2019-04-09 16:00] VITALS: BP 120/79
--- NOTE | 2019-04-09 18:55 | NUR ---
MS RN CLOSING NOTES PATIENT IN BED ALERT ORIENTED X 4. NO ACUTE DISTRESS NOTED. BREATHING UNLABORED. IV ACCESS PATENT AND INTACT, NO REDNESS OR SWELLING NOTED. DUE MEDICATIONS GIVEN, NO ASE NOTED. NEEDS ATTENDED AND ANTICIPATED. SAFETY MEASURES IN PLACE. CALL LIGHT WITHIN REACH. WILL ENDORSE TO NIGHT NURSE FOR CONTINUITY OF CARE.
--- NOTE | 2019-04-09 19:29 | NUR ---
MS RN OPENING NOTES Received patient A/O x4, awake, sitting on chair at bedside watching TV. Patient denies discomfort at this time. On fluid restriction due to condition. Reinforced to patient the importance of fluid restriction and strict I&O measurement, patient verbalized understanding. Kept clean, dry and comfortable. Call light within reach. Will continue to monitor accordingly.
[2019-04-09 20:00] VITALS: BP 130/79
[2019-04-09] MEDS: ENOXAPARIN SODIUM 40 MG/0.4 ML DISP.SYRIN SQ SCH (21:15)
--- NOTE | 2019-04-10 06:24 | NUR ---
MS RN CLOSING NOTES Patient asleep, easily awaken. No complaints made within the shift. On RA, no SOB/respiratory distress noted at this time. All nursing needs attended. Due meds given as ordered, no ASE noted. Kept on bed clean, dry and comfortable. Call light within easy reach. Endorsed to the next shift. Addendum: 04/10/19 at 0706 by MANDA OLSEN RN PATIENT REFUSED AC BREAKFAST ACCU-CHEK. TEACHINGS PROVIDED, PATIENT VERBALIZED UNDERSTANDING.
[2019-04-10] MEDS: BLOOD SUGAR DIAGNOSTIC 1 EACH STRIP IN SCH (07:30)
--- NOTE | 2019-04-10 08:00 | NUR ---
m/s test car driver: MANUFACTURING PRODUCTION MANAGER F/U dr. nieves at bedside at this time, pt still undecided on discussed procedure. pt still verbalizing wanting to go home. pt verbalized understanding. will continue to monitor.
[2019-04-10] MEDS: METOLAZONE 2.5 MG TABLET PO SCH (08:41)
[2019-04-10] MEDS: POTASSIUM CHLORIDE 20 MEQ TAB.PRT.SR PO SCH (08:41)
[2019-04-10] MEDS: LISINOPRIL (20MG) 20 MG TABLET PO SCH (08:42)
[2019-04-10] MEDS: BUMETANIDE (1 MG) 1 MG TABLET PO SCH (08:42)
[2019-04-10] MEDS: CARVEDILOL 12.5 MG TABLET PO SCH (08:42)
[2019-04-10] MEDS: ASPIRIN EC 81 MG TABLET.DR PO SCH (08:42)
[2019-04-10 09:07] VITALS: BP 108/82
--- NOTE | 2019-04-10 10:00 | NUR ---
m/s ticket scheduler: cardio f/u seen and examined by dr. ren at this time. pt wants to go home today.
[2019-04-10] MEDS ORDERED: METO2.5T7 PO (10:54)
[2019-04-10] MEDS ORDERED: BUME1TAB8 PO (10:54)
--- NOTE | 2019-04-10 10:55 | NUR ---
m/s covered buckle assembler: md visit seen and examined by juliette ([email or web address]) and discuss about icd implant, ctca, and lifevest. pt refused lifevest and just wants to follow up with dr. ren in 3 days as outpatient. all concerns and questions from pt answered by juliette ([email or web address]) and verbalized understanding.
--- NOTE | 2019-04-10 11:20 | NUR ---
m/s hob mill operator: d'c instructions discharged instructions with prescriptions given to pt and verbalized understanding. h/l removed with tip intact. pt called his mother to pick him up. pt requested another card of dr. ren and provided. pt will f/u with dr. ren as outpatient this wednesday as stated.
--- NOTE | 2019-04-10 11:35 | NUR ---
m/s center lead consultant: discharged discharged home in stable condition via own car instead of mother picking him up as stated earlier with all valuables and d'c papers.
== END 2019-04-10 11:30 | disposition home or self-care (01) | DRG 194 ==
LOC: ER 16:10 → TELE 21:39 → MED 04-09 08:35
PROVIDERS: ADMIT Nurse Practitioner Acute Care; ATTEND Registered Nurse
DX: I13.0 Hypertensive heart and chronic kidney disease with heart failure and stage 1 through stage 4 chronic kidney disease, or unspecified chronic kidney disease (principal); E43 Unspecified severe protein-calorie malnutrition; E11.22 Type 2 diabetes mellitus with diabetic chronic kidney disease; R18.8 Other ascites; E83.42 Hypomagnesemia; I42.9 Cardiomyopathy, unspecified; E11.65 Type 2 diabetes mellitus with hyperglycemia; I50.23 Acute on chronic systolic (congestive) heart failure; N18.9 Chronic kidney disease, unspecified; E88.09 Other disorders of plasma-protein metabolism, not elsewhere classified; K80.20 Calculus of gallbladder without cholecystitis without obstruction; I25.10 Atherosclerotic heart disease of native coronary artery without angina pectoris; Z79.84 Long term (current) use of oral hypoglycemic drugs; R74.0 Nonspecific elevation of levels of transaminase and lactic acid dehydrogenase [LDH]; D63.8 Anemia in other chronic diseases classified elsewhere; Z86.73 Personal history of transient ischemic attack (TIA), and cerebral infarction without residual deficits; M62.50 Muscle wasting and atrophy, not elsewhere classified, unspecified site; Z68.33 Body mass index [BMI] 33.0-33.9, adult; I08.0 Rheumatic disorders of both mitral and aortic valves; Z91.19 Patient's noncompliance with other medical treatment and regimen
CPT/HCPCS: 36415; 71045-TC; 76700-TC; 80048-TC; 80053-TC; 80061-TC; 80076-TC; 82962-TC; 83735-TC; 83880; 84100-TC; 84443-TC; 84484-TC; 85025-TC; 87081-TC; 93307-TC; 93970-TC; A4216; G0378; J1650; J1815; J1940; J2270; J2405; J3475; J3490

== ENCOUNTER 2019-07-10 21:55 | Emergency (ER) | payer MEDICAID, OTHER ==
[~2019-07-10] VITALS: Ht 182.9 cm; Wt 107.5 kg
[~2019-07-10 21:55] MED LIST changes: +BUME1TAB8 PO; -FURO40TA5 PO; +LISI-603 PO; -LOSA50TA3 PO; +METF-440 PO; +METO2.5T7 PO
--- NOTE | 2019-07-10 22:44 | NUR ---
PT AAOX4. AMBULATORY. C/O L ARM HURTING DUE TO "SLEEPING ON IT WRONG." PLACED ON MONITOR AND PULSE OX. NO ACUTE DISTRESS NOTED.
[2019-07-10] MEDS ORDERED: MORPHINE SULFATE INJ 4 MG/ML DISP.SYRIN ONE (23:09)
[2019-07-10] MEDS ORDERED: ONDANSETRON 4 MG TAB.RAPDIS ONE (23:09)
--- NOTE | 2019-07-10 23:27 | NUR ---
XRAY AT BEDSIDE
[2019-07-10] MEDS ORDERED: ONDANSETRON 4 MG TAB.RAPDIS PO ONE (23:30)
[2019-07-10] MEDS ORDERED: MORPHINE SULFATE INJ 2 MG/ML DISP.SYRIN IM ONE (23:30)
--- NOTE | 2019-07-11 00:34 | NUR ---
EMT AT BEDSIDE FOR SPLINT PLACEMENT AND SLING.
--- NOTE | 2019-07-11 00:55 | NUR ---
Patient discharged to home in stable condition. Written and verbal after care instructions given. Patient verbalizes understanding of instruction and RX. PT ambulatory with a steady gait.
[2019-07-11 01:03] VITALS: BP 118/74
== END 2019-07-11 01:11 | disposition home or self-care (01) ==
LOC: ER 21:59
DX: S52.122A Displaced fracture of head of left radius, initial encounter for closed fracture (principal); I11.0 Hypertensive heart disease with heart failure; I50.9 Heart failure, unspecified; E11.9 Type 2 diabetes mellitus without complications; F17.200 Nicotine dependence, unspecified, uncomplicated; Z88.8 Allergy status to other drugs, medicaments and biological substances; Z60.2 Problems related to living alone; Z79.899 Other long term (current) drug therapy; Z79.82 Long term (current) use of aspirin; Z79.84 Long term (current) use of oral hypoglycemic drugs; X58.XXXA Exposure to other specified factors, initial encounter; Y93.89 Activity, other specified; Y92.89 Other specified places as the place of occurrence of the external cause; Y99.8 Other external cause status
CPT/HCPCS: 29105; 73070; 73090; 73120; 96372; 99283; J2270; Q0162

== ENCOUNTER 2019-08-25 13:32 | Emergency (ER) | payer MEDICAID, OTHER ==
[~2019-08-25] VITALS: Ht 182.9 cm; Wt 113.4 kg
--- NOTE | 2019-08-25 14:06 | NUR ---
PT BIB SELF C/O R ELBOW PAIN SINCE LAST NIGHT. DENIES ANY INJURY, PT IS AAOX4, NOT IN RESPIRATORY DISTRESS, HOOKED TO MONITOR, KEPT RESTED AND COMFORTABLE, WILL CONTINUE TO MONITOR.
--- NOTE | 2019-08-25 14:30 | NUR ---
SEEN AND EXAMINED BY AFINA HARTMAN.
[2019-08-25] MEDS ORDERED: HYDROCODONE/APAP 5/325MG 1 EACH TABLET ONE (14:41)
[2019-08-25] MEDS ORDERED: IBUPROFEN 600 MG TABLET PO ONE ×2 (14:41→15:00)
[2019-08-25] MEDS ORDERED: HYDROCODONE/APAP 5/325MG 1 EACH TABLET PO ONE (15:00)
--- NOTE | 2019-08-25 15:05 | NUR ---
TIME CLOCK REPAIRER AT BEDSIDE FOR XRAY.
--- NOTE | 2019-08-25 16:40 | NUR ---
POSTERIOR LONG ARM CAST APPLIED BY GEOLOGICAL ENGINEERING TEACHER.
[2019-08-25 16:43] VITALS: BP 137/88
--- NOTE | 2019-08-25 16:45 | NUR ---
Patient discharged to home in stable condition. Written and verbal after care instructions given. Patient verbalizes understanding of instruction.
== END 2019-08-25 16:46 | disposition home or self-care (01) ==
LOC: ER 13:32
DX: S52.124A Nondisplaced fracture of head of right radius, initial encounter for closed fracture (principal); S42.444A Nondisplaced fracture (avulsion) of medial epicondyle of right humerus, initial encounter for closed fracture; M65.28 Calcific tendinitis, other site; M25.421 Effusion, right elbow; Z72.0 Tobacco use; I11.0 Hypertensive heart disease with heart failure; I50.9 Heart failure, unspecified; E11.9 Type 2 diabetes mellitus without complications; Z88.8 Allergy status to other drugs, medicaments and biological substances; Z60.2 Problems related to living alone; Z79.899 Other long term (current) drug therapy; Z79.84 Long term (current) use of oral hypoglycemic drugs; Z79.82 Long term (current) use of aspirin; X58.XXXA Exposure to other specified factors, initial encounter; Y93.89 Activity, other specified; Y92.89 Other specified places as the place of occurrence of the external cause; Y99.8 Other external cause status
CPT/HCPCS: 73080-TC; 82962-TC

== ENCOUNTER 2020-04-12 11:33 | Emergency (ER) | payer OTHER ==
[~2020-04-12] VITALS: Ht 182.9 cm; Wt 104.3 kg
[~2020-04-12 11:33] MED LIST changes: -ASPI-1152 PO; +ASPI-1420 PO
--- NOTE | 2020-04-12 12:00 | NUR ---
LEFT ANKLE PAIN SINCE HE TWISTED IT YESTERDAY WHILE WALKING. PATIENT A/OX4, BREATHING EVEN AND UNLABORED, NOS OB NOTED, NEEDS ATTENDED. KEPT COMFORTABLE.
--- NOTE | 2020-04-12 12:10 | NUR ---
CHOCOLATE MOLDER AT BEDSIDE FOR XRAY.
--- NOTE | 2020-04-12 13:27 | NUR ---
ANKLE WRAPPED WITH RADHA BANDAGE. CRUTCHES PROVIDED. Patient discharged to home in stable condition. Written and verbal after care instructions given. Patient verbalizes understanding of instruction.
--- NOTE | 2020-04-12 13:29 | NUR ---
Patient discharged to home in stable condition. Written and verbal after care instructions given. Patient verbalizes understanding of instruction.
[2020-04-12 13:30] VITALS: BP 145/77
== END 2020-04-12 13:31 | disposition home or self-care (01) ==
LOC: ER 11:36
DX: S93.492A Sprain of other ligament of left ankle, initial encounter (principal); I11.0 Hypertensive heart disease with heart failure; I50.89 Other heart failure; E11.9 Type 2 diabetes mellitus without complications; Z60.2 Problems related to living alone; Z79.899 Other long term (current) drug therapy; Z79.82 Long term (current) use of aspirin; Z88.8 Allergy status to other drugs, medicaments and biological substances; X50.1XXA Overexertion from prolonged static or awkward postures, initial encounter; Y93.01 Activity, walking, marching and hiking; Y92.89 Other specified places as the place of occurrence of the external cause; Y99.8 Other external cause status
CPT/HCPCS: 73610-TC; 82962-TC

== ENCOUNTER 2022-03-20 14:27 | Emergency (ER) | payer BC, OTHER ==
[~2022-03-20] VITALS: Ht 182.9 cm; Wt 109.8 kg
[~2022-03-20 14:27] MED LIST changes: -LISI-603 PO; +LISI20TA30 PO
[2022-03-20] MEDS ORDERED: ACETAMINOPHEN 325 MG TABLET ONE (15:19)
[2022-03-20] MEDS ORDERED: ACETAMINOPHEN 325 MG TABLET PO ONE (15:30)
[2022-03-20] MEDS ORDERED: IBUPROFEN 600 MG TABLET ONE (16:17)
[2022-03-20] MEDS ORDERED: IBUPROFEN 600 MG TABLET PO ONE (16:30)
--- NOTE | 2022-03-20 16:53 | NUR ---
Patient discharged to home in stable condition. Written and verbal after care instructions given. Patient verbalizes understanding of instruction.
[2022-03-20 16:58] VITALS: BP 135/76
== END 2022-03-20 16:59 | disposition home or self-care (01) ==
LOC: ER 14:42
DX: M79.10 Myalgia, unspecified site (principal); R51.9 Headache, unspecified; I11.0 Hypertensive heart disease with heart failure; I50.9 Heart failure, unspecified; E11.9 Type 2 diabetes mellitus without complications; F17.200 Nicotine dependence, unspecified, uncomplicated; Z88.8 Allergy status to other drugs, medicaments and biological substances; Z79.899 Other long term (current) drug therapy
CPT/HCPCS: 70486-TC; 73030-TC; 73130-TC; 73564-TC; 73610-TC

== ENCOUNTER 2024-05-17 00:44 | Emergency (ER) | payer BC ==
[~2024-05-17] VITALS: Ht 182.9 cm; Wt 104.3 kg
[2024-05-17] MEDS: ONDANSETRON HCL/PF - ER 4 MG/2 ML VIAL IV ONE (03:00)
[2024-05-17] MEDS: MORPHINE SULFATE INJ 2 MG/ML DISP.SYRIN IV ONE (03:00)
[2024-05-17 03:27] LABS: BASOPHILS % (AUTO) 0.5 % (0.0-2.0); EOSINOPHILS # (AUTO) 0.2 K/uL (0.0-0.7); EOSINOPHILS % (AUTO) 2.3 % (0.0-6.0); HEMATOCRIT 45 % (39-51); HEMOGLOBIN 14.5 g/dL (13.5-17.5); LYMPHOCYTES # (AUTO) 1.2 K/uL (0.8-4.8); LYMPHOCYTES % (AUTO) 16.4 % (20.0-44.0); MEAN CORPUSCULAR HEMOGLOBIN 31 PG (26.0-33.0); MEAN CORPUSCULAR HGB CONC 32 g/dl (31.0-36.0); MEAN CORPUSCULAR VOLUME 96 fL (80-96); MONOCYTES # (AUTO) 0.7 K/uL (0.1-1.30); MONOCYTES % (AUTO) 9.4 % (2.0-12.0); NEUTROPHILS # (AUTO) 5.4 K/uL (1.8-8.9); NEUTROPHILS % (AUTO) 71.4 % (43.0-81.0); PLATELET COUNT (AUTO) 180 K/uL (150-450); RED BLOOD CELL COUNT(AUTO) 4.68 MIL/uL (4.5-6.0); RED CELL DISTRIBUTION WIDTH 15.1 % (11.5-15.0); WHITE BLOOD COUNT (AUTO) 7.6 K/uL (4.3-11.0)
[2024-05-17 04:13] LABS: CALCIUM, SERUM 8.6 mg/dL (8.5-10.1); CREATININE 1.5 mg/dL (0.6-1.3); POTASSIUM 4.2 mmol/L (3.5-5.1)
[2024-05-17 04:25] LABS: ALBUMIN 2.8 g/dL (3.4-5.0); BILIRUBIN,TOTAL 1.4 mg/dL (0.2-1.0); TOTAL PROTEIN, SERUM 6.6 g/dL (6.4-8.2)
[2024-05-17 07:14] VITALS: BP 134/80; TEMP 97.6; O2SAT 100
== END 2024-05-17 07:10 | disposition home or self-care (01) ==
LOC: ER 00:55
DX: R60.0 Localized edema (principal); I13.0 Hypertensive heart and chronic kidney disease with heart failure and stage 1 through stage 4 chronic kidney disease, or unspecified chronic kidney disease; I50.9 Heart failure, unspecified; N18.9 Chronic kidney disease, unspecified; M79.604 Pain in right leg; E11.22 Type 2 diabetes mellitus with diabetic chronic kidney disease; E11.51 Type 2 diabetes mellitus with diabetic peripheral angiopathy without gangrene; F17.200 Nicotine dependence, unspecified, uncomplicated; Z79.82 Long term (current) use of aspirin; Z79.84 Long term (current) use of oral hypoglycemic drugs; Z79.899 Other long term (current) drug therapy; Z88.8 Allergy status to other drugs, medicaments and biological substances; Z60.2 Problems related to living alone
CPT/HCPCS: 99285; 93971; 93926; 71045; 93005; 85025; 36415; 80053; 84484; 83880; J2405

== ENCOUNTER 2024-05-29 20:47 | Inpatient (IN) | payer BC ==
[~2024-05-29] VITALS: Ht 182.9 cm; Wt 109.3 kg
[2024-05-29 21:17] VITALS: O2SAT 90
[2024-05-29 21:57] LABS: EOSINOPHILS % (AUTO) 0.3 % (0.0-6.0); MEAN CORPUSCULAR HEMOGLOBIN 31 PG (26.0-33.0); MONOCYTES # (AUTO) 1.2 K/uL (0.1-1.30)
[2024-05-29 22:04] LABS: CALCIUM, SERUM 8.7 mg/dL (8.5-10.1); CARBON DIOXIDE 30 mmol/L (21-32); CHLORIDE 99 mmol/L (98-107); CREATININE 1.6 mg/dL (0.6-1.3); GLUCOSE 224 mg/dL (74-106); SODIUM SERUM 134 mmol/L (136-145); UREA NITROGEN, BLOOD 44 mg/dL (7-18)
[2024-05-29 22:09] LABS: BASOPHILS % (AUTO) 0.4 % (0.0-2.0); HEMATOCRIT 50 % (39-51); HEMOGLOBIN 15.6 g/dL (13.5-17.5); LYMPHOCYTES # (AUTO) 1.1 K/uL (0.8-4.8); LYMPHOCYTES % (AUTO) 9.4 % (20.0-44.0); MEAN CORPUSCULAR HGB CONC 31 g/dl (31.0-36.0); MEAN CORPUSCULAR VOLUME 98 fL (80-96); MONOCYTES % (AUTO) 9.9 % (2.0-12.0); NEUTROPHILS # (AUTO) 9.5 K/uL (1.8-8.9); PLATELET COUNT (AUTO) 175 K/uL (150-450); RED CELL DISTRIBUTION WIDTH 15.5 % (11.5-15.0); WHITE BLOOD COUNT (AUTO) 11.9 K/uL (4.3-11.0)
[2024-05-29 22:11] LABS: INR 1.37 (0.91-1.10); PARTIAL THROMBOPLASTIN TIME 28.1 SEC (24.3-34.3); PROTHROMBIN TIME 13.9 SECS (9.2-11.1)
[2024-05-29 22:17] LABS: ALANINE AMINOTRANSFERASE 513 U/L (12-78); ALBUMIN 2.6 g/dL (3.4-5.0); ALKALINE PHOSPHATASE 243 U/L (46-116); ASPARTATE AMINOTRANSFERASE 154 U/L (15-37); BILIRUBIN,DIRECT 1.9 mg/dL (0.0-0.2); BILIRUBIN,TOTAL 3.4 mg/dL (0.2-1.0); NT-PRO BNP 3071 pg/mL (0-125)
[2024-05-30] MEDS ORDERED: ONDANSETRON HCL/PF 4 MG/2 ML VIAL IVP PRN (00:30)
[2024-05-30] MEDS ORDERED: MAG HYDROX/AL HYDROX/SIMETH 30 ML UDC PO PRN (00:30)
[2024-05-30] MEDS ORDERED: MAGNESIUM HYDROXIDE 30 ML UDC PO PRN (00:30)
[2024-05-30] MEDS ORDERED: Z GUARD REMEDY 4 OZ OINT TP PRN (00:30)
[2024-05-30] MEDS ORDERED: DEXTROSE 50%-WATER 50 ML DISP.SYRIN IV PRN (00:30)
[2024-05-30] MEDS: BUMETANIDE INJ 0.25 MG/ML VIAL IV ONE (01:01)
[2024-05-30 06:21] LABS: BASOPHILS % (AUTO) 0.2 % (0.0-2.0); EOSINOPHILS % (AUTO) 0.5 % (0.0-6.0); HEMATOCRIT 42 % (39-51); HEMOGLOBIN 13.5 g/dL (13.5-17.5); LYMPHOCYTES # (AUTO) 1.4 K/uL (0.8-4.8); LYMPHOCYTES % (AUTO) 13.1 % (20.0-44.0); MEAN CORPUSCULAR HEMOGLOBIN 30 PG (26.0-33.0); MEAN CORPUSCULAR HGB CONC 32 g/dl (31.0-36.0); MEAN CORPUSCULAR VOLUME 94 fL (80-96); MONOCYTES # (AUTO) 1.1 K/uL (0.1-1.30); MONOCYTES % (AUTO) 10.2 % (2.0-12.0); PLATELET COUNT (AUTO) 158 K/uL (150-450); RED BLOOD CELL COUNT(AUTO) 4.46 MIL/uL (4.5-6.0); RED CELL DISTRIBUTION WIDTH 15.3 % (11.5-15.0); WHITE BLOOD COUNT (AUTO) 10.5 K/uL (4.3-11.0)
[2024-05-30] MEDS: BLOOD SUGAR DIAGNOSTIC 1 EACH STRIP IN SCH (06:33)
[2024-05-30] MEDS: INSULIN REGULAR, HUMAN 100 UNIT/ML 3 ML VIAL SQ PRN (06:35)
[2024-05-30 07:12] LABS: ALBUMIN 2.2 g/dL (3.4-5.0); BILIRUBIN,TOTAL 2.4 mg/dL (0.2-1.0); CALCIUM, SERUM 8.5 mg/dL (8.5-10.1); CREATININE 1.4 mg/dL (0.6-1.3); MAGNESIUM 2.2 mg/dL (1.8-2.4); PHOSPHORUS 2.8 mg/dL (2.5-4.9); POTASSIUM 4.5 mmol/L (3.5-5.1); TOTAL PROTEIN, SERUM 6.1 g/dL (6.4-8.2)
[2024-05-30 07:17] LABS: APPEARANCE,URINE CLEAR (CLEAR); BILIRUBIN,URINE NEGATIVE (NEGATIVE); BLOOD, URINE TRACE-INTA Ery/uL (NEGATIVE); COLOR,URINE YELLOW (YELLOW); KETONES,URINE NEGATIVE (NEGATIVE); LEUKOCYTE ESTERASE ,URINE NEGATIVE (NEGATIVE); NITRITE, URINE NEGATIVE (NEGATIVE); PH,URINE 6.5 (5.0-8.0); PROTEIN,URINE 1+ mg/dl (NEGATIVE); UGLUCOSE TRACE mg/dL (NEGATIVE)
[2024-05-30 07:29] LABS: ADD URINE CULTURE NO; BACTERIA,URINE Rare /HPF (None Seen); RBC,URINE 0-2 /HPF (0-2); SQUAMOUS EPITHELIAL CELL,UR Few /HPF (None Seen); WBC,URINE 0-2 /HPF (0-3)
[2024-05-30 07:30] VITALS: BP 136/89; TEMP 97.7; O2SAT 99
[2024-05-30] MEDS: ASPIRIN EC 81 MG TABLET.DR PO SCH (10:00)
[2024-05-30] MEDS: METOLAZONE 2.5 MG TABLET PO SCH (10:01)
[2024-05-30] MEDS: LISINOPRIL (20MG) 20 MG TABLET PO SCH (10:02)
[2024-05-30] MEDS: PANTOPRAZOLE 40 MG VIAL IV SCH (10:02)
[2024-05-30] MEDS: CARVEDILOL 3.125 MG TABLET PO SCH (10:02)
[2024-05-30] MEDS: METFORMIN 500 MG TABLET PO SCH (10:02)
[2024-05-30] MEDS: FUROSEMIDE 40 MG/4 ML VIAL IV SCH (12:48)
[2024-05-30] MEDS ORDERED: DAPA10TA PO (15:26)
[2024-05-30] MEDS ORDERED: METO25TA20 PO (15:26)
[2024-05-30] MEDS ORDERED: BUME1TAB8 PO (15:26)
[2024-05-30] MEDS ORDERED: SACU1TAB PO (15:26)
[2024-05-30] MEDS ORDERED: METF-442 PO (15:26)
[2024-05-30] MEDS ORDERED: SPIR25TA6 PO (15:26)
[2024-05-30 16:00] VITALS: BP 122/87; TEMP 98.2; O2SAT 97
[2024-05-30 19:11] LABS: AMPHETAMINE, URINE NEGATIVE (NEGATIVE); BARBITURATE, URINE NEGATIVE (NEGATIVE); BENZODIAZEPINE, URINE NEGATIVE (NEGATIVE); COCCAINE, URINE NEGATIVE (NEGATIVE); OPIATE, URINE NEGATIVE (NEGATIVE); PHENCYCLIDINE SCREEN,URINE NEGATIVE (NEGATIVE)
[2024-05-30 19:13] LABS: CANNABINOID, URINE POSITIVE (NEGATIVE)
[2024-05-30 19:14] LABS: CREATININE, URINE < 13.0 MG/DL (30.0-125.0); URINE SODIUM, RANDOM 125 mmol/l (40-220); URINE TOTAL PROTEIN 16.6 mg/dL (0-11.9)
[2024-05-30 20:00] VITALS: BP 133/93; TEMP 98.8; O2SAT 96
[2024-05-30] MEDS: ACETAMINOPHEN 325 MG TABLET PO PRN (23:00)
[2024-05-31] VITALS: BP_SYST 114; BP_SYST 130; BP_DIAS 84; BP_DIAS 90; TEMP 98.1; TEMP 98.4; O2SAT 94; O2SAT 97
[2024-05-31] MEDS: HYDROCODONE/APAP 5/325MG TABLET PO PRN (00:44)
[2024-05-31] MEDS: Magnesium 1GM/D5W 100ML PREMIX PIGGYBACK IV ONE (03:35)
[2024-05-31 04:00] VITALS: BP 130/90; TEMP 98.1; O2SAT 94
[2024-05-31 07:30] VITALS: BP 131/91; TEMP 97.7; O2SAT 98
[2024-05-31 07:39] LABS: BASOPHILS % (AUTO) 0.3 % (0.0-2.0); EOSINOPHILS # (AUTO) 0.2 K/uL (0.0-0.7); EOSINOPHILS % (AUTO) 2.5 % (0.0-6.0); HEMATOCRIT 41 % (39-51); HEMOGLOBIN 13.4 g/dL (13.5-17.5); LYMPHOCYTES # (AUTO) 1.5 K/uL (0.8-4.8); LYMPHOCYTES % (AUTO) 15.3 % (20.0-44.0); MEAN CORPUSCULAR HEMOGLOBIN 31 PG (26.0-33.0); MEAN CORPUSCULAR HGB CONC 33 g/dl (31.0-36.0); MEAN CORPUSCULAR VOLUME 94 fL (80-96); MONOCYTES % (AUTO) 9.5 % (2.0-12.0); NEUTROPHILS # (AUTO) 7.3 K/uL (1.8-8.9); NEUTROPHILS % (AUTO) 72.4 % (43.0-81.0); PLATELET COUNT (AUTO) 163 K/uL (150-450); RED BLOOD CELL COUNT(AUTO) 4.36 MIL/uL (4.5-6.0); RED CELL DISTRIBUTION WIDTH 15.3 % (11.5-15.0); WHITE BLOOD COUNT (AUTO) 10.1 K/uL (4.3-11.0)
[2024-05-31 08:06] LABS: ALBUMIN 2.1 g/dL (3.4-5.0); BILIRUBIN,TOTAL 2.5 mg/dL (0.2-1.0); CALCIUM, SERUM 8.6 mg/dL (8.5-10.1); CREATININE 1.2 mg/dL (0.6-1.3); MAGNESIUM 1.7 mg/dL (1.8-2.4); PHOSPHORUS 3.5 mg/dL (2.5-4.9); POTASSIUM 3.6 mmol/L (3.5-5.1); TOTAL PROTEIN, SERUM 5.8 g/dL (6.4-8.2)
[2024-05-31 08:20] VITALS: BP 131/91
[2024-05-31] MEDS: METOPROLOL TARTRATE 50 MG TABLET PO SCH (09:30)
[2024-05-31] MEDS: Magnesium 1GM/D5W 100ML PREMIX 100 ML IV SCH (10:20)
[2024-05-31] MEDS: SPIRONOLACTONE 25 MG TABLET PO SCH (10:20)
[2024-05-31] MEDS ORDERED: HYDROCODONE/APAP 5/325MG TABLET PO PRN (11:30)
[2024-05-31] MEDS: COLCHICINE 0.6 MG TABLET PO SCH (12:06)
[2024-06-01 06:12] LABS: PTH, INTACT 12 pg/mL (15-65)
[2024-06-01] MEDS ORDERED: PANTOPRAZOLE 40 MG TABLET.DR PO SCH (09:00)
== END 2024-05-31 15:30 | disposition left against medical advice (07) | DRG 194 ==
LOC: ER 20:53 → TELE 23:53
PROVIDERS: ATTEND Nurse Practitioner Acute Care
DX: I13.0 Hypertensive heart and chronic kidney disease with heart failure and stage 1 through stage 4 chronic kidney disease, or unspecified chronic kidney disease (principal); N17.0 Acute kidney failure with tubular necrosis; E11.22 Type 2 diabetes mellitus with diabetic chronic kidney disease; E87.1 Hypo-osmolality and hyponatremia; I50.23 Acute on chronic systolic (congestive) heart failure; N18.9 Chronic kidney disease, unspecified; Z79.84 Long term (current) use of oral hypoglycemic drugs; Z79.82 Long term (current) use of aspirin; M10.9 Gout, unspecified; E66.9 Obesity, unspecified; Z68.32 Body mass index [BMI] 32.0-32.9, adult; K76.1 Chronic passive congestion of liver; F12.90 Cannabis use, unspecified, uncomplicated; E83.42 Hypomagnesemia; I70.201 Unspecified atherosclerosis of native arteries of extremities, right leg; M89.8X9 Other specified disorders of bone, unspecified site; Z79.899 Other long term (current) drug therapy; Z82.3 Family history of stroke; Z82.49 Family history of ischemic heart disease and other diseases of the circulatory system; Z86.73 Personal history of transient ischemic attack (TIA), and cerebral infarction without residual deficits
CPT/HCPCS: 36415; 71045-TC; 76700-TC; 80048-TC; 80053-TC; 80076-TC; 81001; 82140-TC; 82550-TC; 82570-TC; 82962-TC; 83690-TC; 83735-TC; 83880; 83970; 84100-TC; 84155; 84165; 84300-TC; 84484-TC; 84550-TC; 85025-TC; 85730-TC; 93307-TC; A4223; G0378; J1815; J1940; J2470; J3475; J3490; J7030; J7050

== ENCOUNTER 2024-06-03 18:51 | Emergency (ER) | payer BC ==
[~2024-06-03] VITALS: Ht 182.9 cm; Wt 89.4 kg
[~2024-06-03 18:51] MED LIST changes: -CARV3.122 PO; +DAPA10TA PO; -GLIP5TAB13 PO; -LISI20TA30 PO; -METF-440 PO; +METF-442 PO; -METO2.5T7 PO; +METO25TA20 PO; -POTA20TA83 PO; +SACU1TAB PO; +SPIR25TA6 PO
[2024-06-03 20:32] LABS: BASOPHILS # (AUTO) 0.1 K/uL (0.0-0.2); BASOPHILS % (AUTO) 0.7 % (0.0-2.0); EOSINOPHILS # (AUTO) 0.1 K/uL (0.0-0.7); EOSINOPHILS % (AUTO) 0.7 % (0.0-6.0); HEMATOCRIT 54 % (39-51); HEMOGLOBIN 17.4 g/dL (13.5-17.5); LYMPHOCYTES # (AUTO) 1.6 K/uL (0.8-4.8); LYMPHOCYTES % (AUTO) 12.4 % (20.0-44.0); MEAN CORPUSCULAR HEMOGLOBIN 31 PG (26.0-33.0); MEAN CORPUSCULAR HGB CONC 33 g/dl (31.0-36.0); MEAN CORPUSCULAR VOLUME 94 fL (80-96); MONOCYTES % (AUTO) 8.1 % (2.0-12.0); NEUTROPHILS % (AUTO) 78.1 % (43.0-81.0); PLATELET COUNT (AUTO) 214 K/uL (150-450); RED BLOOD CELL COUNT(AUTO) 5.71 MIL/uL (4.5-6.0); RED CELL DISTRIBUTION WIDTH 15.7 % (11.5-15.0); WHITE BLOOD COUNT (AUTO) 12.8 K/uL (4.3-11.0)
[2024-06-03 20:38] LABS: CALCIUM, SERUM 8.8 mg/dL (8.5-10.1); CARBON DIOXIDE 36 mmol/L (21-32); CHLORIDE 93 mmol/L (98-107); CREATININE 1.6 mg/dL (0.6-1.3); GLUCOSE 251 mg/dL (74-106); POTASSIUM 4.3 mmol/L (3.5-5.1); SODIUM SERUM 132 mmol/L (136-145); UREA NITROGEN, BLOOD 30 mg/dL (7-18)
[2024-06-03 20:48] LABS: INR 1.32 (0.91-1.10); PROTHROMBIN TIME 13.7 SECS (9.2-11.1)
[2024-06-03 20:51] LABS: ALANINE AMINOTRANSFERASE 134 U/L (12-78); ALKALINE PHOSPHATASE 180 U/L (46-116); ASPARTATE AMINOTRANSFERASE 42 U/L (15-37); BILIRUBIN,TOTAL 2.4 mg/dL (0.2-1.0); NT-PRO BNP 5689 pg/mL (0-125); TOTAL PROTEIN, SERUM 7.8 g/dL (6.4-8.2)
[2024-06-03 21:00] LABS: ALBUMIN 1.9 g/dL (3.4-5.0); BILIRUBIN,DIRECT 0.9 mg/dL (0.0-0.2)
[2024-06-03] MEDS ORDERED: ALLO100T PO (21:00)
[2024-06-03] MEDS ORDERED: BUME1TAB8 PO (21:00)
[2024-06-03] MEDS ORDERED: METO25TA20 PO (21:00)
[2024-06-03] MEDS ORDERED: ASPI-1420 PO (21:00)
[2024-06-03] MEDS ORDERED: DAPA10TA PO (21:00)
[2024-06-03] MEDS ORDERED: SACU1TAB PO (21:00)
[2024-06-03] MEDS ORDERED: SPIR25TA6 PO (21:00)
[2024-06-03] MEDS ORDERED: METF-442 PO (21:00)
[2024-06-03 23:09] VITALS: BP 110/79; TEMP 98; O2SAT 90
== END 2024-06-03 23:09 | disposition home or self-care (01) ==
LOC: ER 18:51
DX: I11.0 Hypertensive heart disease with heart failure (principal); I50.9 Heart failure, unspecified; R06.02 Shortness of breath; E11.65 Type 2 diabetes mellitus with hyperglycemia; F17.200 Nicotine dependence, unspecified, uncomplicated; M10.9 Gout, unspecified; Z79.82 Long term (current) use of aspirin; Z79.84 Long term (current) use of oral hypoglycemic drugs; Z79.899 Other long term (current) drug therapy
CPT/HCPCS: 36415; 71045-TC; 80048-TC; 80076-TC; 83880; 84484-TC; 84550-TC; 85025-TC; 85730-TC

== ENCOUNTER 2025-04-16 14:21 | Emergency (ER) | payer BC ==
[~2025-04-16] VITALS: Ht 182.9 cm; Wt 104.3 kg
[~2025-04-16 14:21] MED LIST changes: +ALLO100T PO
[2025-04-16 14:26] VITALS: BP 113/79; TEMP 98.4
[2025-04-16] MEDS ORDERED: ACETAMINOPHEN ES 500 MG TABLET ONE (15:42)
[2025-04-16] MEDS ORDERED: IBUPROFEN 600 MG TABLET ONE (15:42)
[2025-04-16] MEDS: IBUPROFEN 600 MG TABLET PO ONE (15:45)
[2025-04-16] MEDS: ACETAMINOPHEN ES 500 MG TABLET PO ONE (15:45)
[2025-04-16] MEDS ORDERED: IBUP-1953 PO (16:30)
[2025-04-16 16:35] VITALS: O2SAT 98
== END 2025-04-16 16:36 | disposition home or self-care (01) ==
LOC: ER 14:22
DX: S82.892A Other fracture of left lower leg, initial encounter for closed fracture (principal); S93.402A Sprain of unspecified ligament of left ankle, initial encounter; E11.9 Type 2 diabetes mellitus without complications; I11.0 Hypertensive heart disease with heart failure; I50.9 Heart failure, unspecified; M10.9 Gout, unspecified; F17.200 Nicotine dependence, unspecified, uncomplicated; Z79.82 Long term (current) use of aspirin; Z79.84 Long term (current) use of oral hypoglycemic drugs; Z79.899 Other long term (current) drug therapy; W18.30XA Fall on same level, unspecified, initial encounter; Y93.89 Activity, other specified; Y92.89 Other specified places as the place of occurrence of the external cause; Y99.8 Other external cause status
CPT/HCPCS: 73030-TC; 73590-TC; 73610-TC; 73630-TC; 82962-TC

== ENCOUNTER 2025-05-08 19:05 | Emergency (ER) | payer BC ==
[~2025-05-08] VITALS: Ht 188 cm; Wt 88.5 kg
[~2025-05-08 19:05] MED LIST changes: +IBUP-1953 PO
[2025-05-08] MEDS: IBUPROFEN 600 MG TABLET PO ONE (19:58)
[2025-05-08] MEDS ORDERED: IBUPROFEN 600 MG TABLET ONE (19:58)
[2025-05-08] MEDS ORDERED: IBUP-1490 PO (20:44)
[2025-05-08 20:50] VITALS: BP 129/80; TEMP 98.5; O2SAT 99
== END 2025-05-08 21:15 | disposition home or self-care (01) ==
LOC: ER 19:11
DX: M79.671 Pain in right foot (principal); M79.672 Pain in left foot; I11.0 Hypertensive heart disease with heart failure; E11.9 Type 2 diabetes mellitus without complications; F17.200 Nicotine dependence, unspecified, uncomplicated; M10.9 Gout, unspecified; Z79.82 Long term (current) use of aspirin; Z79.84 Long term (current) use of oral hypoglycemic drugs; Z79.899 Other long term (current) drug therapy
CPT/HCPCS: 73610-TC; 73630-TC